=== PATIENT | male | born 1960 | race Caucasian/White ===

== ENCOUNTER 2017-08-15 16:36 | Inpatient (IN) | payer OTHER ==
[~2017-08-15] VITALS: Ht 172.7 cm; Wt 69.9 kg
[2017-08-15] MEDS ORDERED: NALOXONE HCL 1 MG/ML 2 ML SYG IVP ONE (17:15)
[2017-08-15 18:08] LABS: BASOPHILS % (AUTO) 0.1 % (0.0-2.0); EOSINOPHILS % (AUTO) 0.1 % (1.0-6.0); HEMATOCRIT 34.2 % (41-53); HEMOGLOBIN 11.8 g/dL (13.5-17.5); LYMPHOCYTES # (AUTO) 2.1 K/uL (1.0-4.8); LYMPHOCYTES % (AUTO) 7.9 % (22.0-44.0); MEAN CORPUSCULAR HGB CONC 34.6 G/dL (31.0-37.0); MEAN CORPUSCULAR VOLUME 101 fL (80-100); MONOCYTES # (AUTO) 1.2 K/uL (0.1-1.0); MONOCYTES % (AUTO) 4.4 % (2.0-9.0); NEUTROPHILS # (AUTO) 23.4 K/uL (1.8-7.7); PLATELET COUNT (AUTO) 115 K/uL (150-450); RED BLOOD CELL COUNT(AUTO) 3.38 MIL/uL (4.50-5.90); RED CELL DISTRIBUTION WIDTH 13.4 % (11.5-14.5)
[2017-08-15 18:15] LABS: NEUTROPHILS % (AUTO) 87.5 % (40.0-70.0)
[2017-08-15] MEDS ORDERED: PERMETHRIN 5% 60 GM CREAM TP ONE (18:15)
[2017-08-15] MEDS ORDERED: AZITHROMYCIN 500 MG/NS 250 ML IV ONE (18:15)
[2017-08-15] MEDS ORDERED: CefTRIAXone SODIUM 1 GM in DEXTROSE 5%-WATER 10 ML IV ONE (18:15)
[2017-08-15 18:19] LABS: ANION GAP 9 mmol/L (8-16); CALCIUM, TOTAL 7.9 mg/dL (8.8-10.5); CARBON DIOXIDE 27 mmol/L (22-29); CHLORIDE 102 mmol/L (98-107); CREATININE 0.84 mg/dL (0.60-1.30); GLOMERULAR FILTR. RATE CALC > 60 mL/min (>60); GLUCOSE,RANDOM 187 mg/dL (70-110); POTASSIUM 3.3 mmol/L (3.5-5.1); SODIUM SERUM 138 mmol/L (136-145); UREA NITROGEN, BLOOD 23 mg/dL (7-18)
[2017-08-15 18:30] LABS: PLATELET MORPHOLOGY COMMENT GIANT PLTS PRESENT; TROPONIN I < 0.02 ng/mL (0.00-0.05)
[2017-08-15] MEDS ORDERED: VANCOMYCIN HCL 1 GM/D5% WATER 200 ML IV ONE (18:30)
[2017-08-15] MEDS ORDERED: SODIUM CHLORIDE 0.9% 1,000 ML IV ONE ×3 (18:30→21:45)
[2017-08-15 18:34] LABS: APPEARANCE,URINE CLOUDY (CLEAR); BILIRUBIN,URINE NEGATIVE (NEGATIVE); GLUCOSE, URINE (UA) NEGATIVE (NEGATIVE); KETONES,URINE NEGATIVE (NEGATIVE); LEUKOCYTE ESTERASE ,URINE NEGATIVE (NEGATIVE); NITRATE,URINE NEGATIVE (NEGATIVE); OCCULT BLOOD,URINE LARGE (NEGATIVE); PH,URINE 5.5 (5.0-8.0); PROTEIN,URINE NEGATIVE (NEGATIVE)
[2017-08-15 18:35] LABS: AMPHET/METH SCREEN,URINE NEGATIVE (NEGATIVE); BARBITURATE SCREEN, URINE NEGATIVE (NEGATIVE); BENZODIAZEPINES SCREEN,URINE POSITIVE (NEGATIVE); CANNABINOID SCREEN,URINE NEGATIVE (NEGATIVE); COCAINE SCREEN,URINE NEGATIVE (NEGATIVE); METHADONE SCREEN, URINE POSITIVE (NEGATIVE); OPIATE SCREEN,URINE POSITIVE (NEGATIVE); PHENCYCLIDINE SCREEN,URINE NEGATIVE (NEGATIVE)
[2017-08-15 18:36] LABS: INR 1.1 (0.9-1.1); PROTHROMBIN TIME 11.5 SEC (9.4-11.6)
[2017-08-15 18:38] LABS: AMMONIA < 10 umol/L (11-32)
[2017-08-15 18:41] LABS: ALANINE AMINOTRANSFERASE 85 U/L (12-78); ALBUMIN 2.5 g/dL (3.4-5.0); ALKALINE PHOSPHATASE 77 U/L (46-116); ASPARTATE AMINOTRANSFERASE 118 U/L (15-37); BILIRUBIN,TOTAL 0.7 mg/dL (0.1-1.0); CREATINE KINASE MB 4.9 ng/mL (0-5); CREATINE KINASE, TOTAL 308 U/L (39-308); TOTAL PROTEIN, SERUM 7.7 g/dL (6.4-8.2)
[2017-08-15 18:43] LABS: BACTERIA,URINE Few /HPF (None Seen); SQUAMOUS EPITHELIAL CELL,UR Few /LPF (None Seen); WBC,URINE 0-2 /HPF (0-5)
[2017-08-15] MEDS ORDERED: MAGNESIUM SULFATE 2 GM, MVI, ADULT NO.1 WITH VIT K 10 ML, THIAMINE HCL 100 MG, FOLIC AC... IV ONE ×10 (19:00→21:15)
[2017-08-15 19:22] LABS: LACTIC ACID 3.8 mmol/L (0.4-2.0)
[2017-08-15] MEDS ORDERED: LORazepam 2 MG/ML VIAL IVP ONE (19:30)
[2017-08-15] MEDS ORDERED: NITROGLYCERIN 2% (1 GM=INCH) PACKET TP ONE (19:30)
[2017-08-15 19:36] LABS: ABG A-A DIFF O2 167.9 mmHg (10-20.0); ABG BASE EXCESS -7.4 mmol/L (-2.0-3.0); ABG CARBOXYHEMOGLOBIN 3.2 % (0.0-1.5); ABG HCO3 17.3 mmol/L (22.0-26.0); ABG METHEMOGLOBIN 0.7 % (0.0-1.5); ABG OXYGEN CONTENT 18.9 mL/dL (15.0-23.0); ABG OXYHEMOGLOBIN 96.1 % (94.0-100.0); ABG TOTAL HEMOGLOBIN 13.1 G/dL (12.0-18.0); PO2, ARTERIAL BG 458.8 mmHg (66.0-74.0); SOURCE, BLOOD GAS ARTERIAL; TEMPERATURE, FAHRENHEIT, BG 98.6 FAHREN (96.0-98.6)
[2017-08-15] MEDS ORDERED: PROPOFOL 1000 MG/ISO-OSM 100 ML IV ONE (19:53)
[2017-08-15 20:07] LABS: ABG PH 7.046 (7.35-7.450)
[2017-08-15 20:08] LABS: ABG PCO2 86 mmHg (35-45); O2 DEVICE,BLOOD GAS VENTILATOR (ROOM AIR); PEEP,BG 5 cm H2O; SITE, BLOOD GAS LFT RADIAL; SPONTANEOUS VT, BG 443 ml; VT, ABG 450 ml
[2017-08-15] MEDS ORDERED: 0.9% SODIUM CHLORIDE 10 ML SYRINGE IVP PRN (20:30)
[2017-08-15] MEDS ORDERED: POTASSIUM CHL 10 MEQ/WATER 50 ML IV ONE (20:30)
[2017-08-15 20:40] LABS: ABG A-A DIFF O2 197.3 mmHg (10-20.0); ABG BASE EXCESS -5.1 mmol/L (-2.0-3.0); ABG HCO3 19.3 mmol/L (22.0-26.0); ABG METHEMOGLOBIN 0.7 % (0.0-1.5); ABG OXYGEN CONTENT 15.5 mL/dL (15.0-23.0); ABG OXYHEMOGLOBIN 87.6 % (94.0-100.0); ABG TOTAL HEMOGLOBIN 12.5 G/dL (12.0-18.0); PO2, ARTERIAL BG 80.4 mmHg (66.0-74.0); SOURCE, BLOOD GAS ARTERIAL; TEMPERATURE, FAHRENHEIT, BG 98.3 FAHREN (96.0-98.6)
[2017-08-15] MEDS ORDERED: ONDANSETRON HCL 4 MG/2 ML VIAL IVP PRN (21:15)
[2017-08-15] MEDS ORDERED: MAGNESIUM OXIDE 400 MG TABLET PO PRN (21:15)
[2017-08-15] MEDS ORDERED: POTASSIUM CHLORIDE 20 MEQ ER TABLET PO PRN (21:15)
[2017-08-15 21:24] LABS: PHOSPHORUS 2.2 mg/dL (2.5-4.9)
[2017-08-15 21:52] LABS: ABG PH 7.148 (7.35-7.450)
[2017-08-15 21:53] LABS: ABG PCO2 70 mmHg (35-45); O2 DEVICE,BLOOD GAS VENTILATOR (ROOM AIR); PEEP,BG 5 cm H2O; SITE, BLOOD GAS RT RADIAL; VT, ABG 450 ml
[2017-08-15 21:54] LABS: SPONTANEOUS VT, BG 440 ml
[2017-08-15] MEDS: PIPERACILLIN SODIUM/TAZOBACTAM 4.5 GM in DEXTROSE 5%-WATER 100 ML IV SCH (22:22)
[2017-08-15 23:00] VITALS: BP 115/73
[2017-08-15] MEDS ORDERED: ALBUTEROL SULFATE 2.5 MG/0.5 ML NEB SOLUTION NEB SCH (23:00)
[2017-08-15] MEDS ORDERED: IPRATROPIUM BROMIDE 0.5 MG/2.5 ML NEB SOLUTION NEB SCH (23:00)
[2017-08-15] MEDS ORDERED: VANCOMYCIN HCL 500 MG in DEXTROSE 5%-WATER 100 ML IV ONE (23:00)
[2017-08-15] MEDS ORDERED: SODIUM CHLORIDE 0.9% 250 ML IV ONE (23:35)
[2017-08-15] MEDS: PROPOFOL 1000 MG/ISO-OSM 100 ML IV PRN (23:50)
[2017-08-15] MEDS: HEPARIN SODIUM,PORCINE 5,000 UNITS/ML VIAL SQ SCH (23:51)
[2017-08-16] VITALS: BP 97/57
[2017-08-16] MEDS: PIPERACILLIN SODIUM/TAZOBACTAM 4.5 GM in DEXTROSE 5%-WATER 100 ML IV SCH (03:45)
[2017-08-16] MEDS: ACETAMINOPHEN 325 MG TABLET PO PRN (03:45)
[2017-08-16 04:00] VITALS: BP 110/64
[2017-08-16 05:28] LABS: ALANINE AMINOTRANSFERASE 63 U/L (12-78); ALKALINE PHOSPHATASE 60 U/L (46-116); ANION GAP 4 mmol/L (8-16); ASPARTATE AMINOTRANSFERASE 90 U/L (15-37); BILIRUBIN,TOTAL 0.6 mg/dL (0.1-1.0); CALCIUM, TOTAL 6.9 mg/dL (8.8-10.5); CARBON DIOXIDE 28 mmol/L (22-29); CHLORIDE 106 mmol/L (98-107); CREATININE 0.81 mg/dL (0.60-1.30); GLOMERULAR FILTR. RATE CALC > 60 mL/min (>60); GLUCOSE,RANDOM 122 mg/dL (70-110); POTASSIUM 3.5 mmol/L (3.5-5.1); SODIUM SERUM 138 mmol/L (136-145); TOTAL PROTEIN, SERUM 6.3 g/dL (6.4-8.2); UREA NITROGEN, BLOOD 17 mg/dL (7-18)
[2017-08-16] MEDS ORDERED: RAPID SEQUENCE KIT [RSI] 1 EACH KIT ONE (06:59)
[2017-08-16] MEDS ORDERED: SUCCINYLCHOLINE CHLORIDE 20 MG/ML 10 ML VIAL ONE (07:00)
[2017-08-16 07:05] LABS: BASOPHILS % (AUTO) 0.2 % (0.0-2.0); EOSINOPHILS % (AUTO) 0.7 % (1.0-6.0); HEMATOCRIT 31.1 % (41-53); HEMOGLOBIN 10.7 g/dL (13.5-17.5); LYMPHOCYTES # (AUTO) 1.3 K/uL (1.0-4.8); LYMPHOCYTES % (AUTO) 9.9 % (22.0-44.0); MEAN CORPUSCULAR HEMOGLOBIN 35.5 pg (26.0-34.0); MEAN CORPUSCULAR HGB CONC 34.4 G/dL (31.0-37.0); MEAN CORPUSCULAR VOLUME 103 fL (80-100); MONOCYTES # (AUTO) 0.5 K/uL (0.1-1.0); MONOCYTES % (AUTO) 3.7 % (2.0-9.0); NEUTROPHILS # (AUTO) 10.9 K/uL (1.8-7.7); RED BLOOD CELL COUNT(AUTO) 3.01 MIL/uL (4.50-5.90); RED CELL DISTRIBUTION WIDTH 13.5 % (11.5-14.5)
[2017-08-16 07:22] LABS: NEUTROPHILS % (AUTO) 85.5 % (40.0-70.0)
[2017-08-16 08:00] VITALS: BP 98/54
[2017-08-16] MEDS ORDERED: VANCOMYCIN HCL 1.5 GM in DEXTROSE 5%-WATER 250 ML IV SCH (08:00)
[2017-08-16] MEDS: PROPOFOL 1000 MG/ISO-OSM 100 ML IV PRN ×2 (08:28→20:16)
[2017-08-16 09:19] LABS: PLATELET COUNT (AUTO) 91 K/uL (150-450)
[2017-08-16 09:22] LABS: PLATELET MORPHOLOGY COMMENT GIANT PLTS PRESENT
[2017-08-16] MEDS: VANCOMYCIN HCL 1 GM/D5% WATER 200 ML IV SCH ×2 (09:44→20:16)
[2017-08-16] MEDS: DOCUSATE SODIUM 100 MG CAPSULE PO SCH ×2 (09:45→20:16)
[2017-08-16] MEDS: PANTOPRAZOLE SODIUM 40 MG/VIAL IVP SCH (09:46)
[2017-08-16] MEDS: HEPARIN SODIUM,PORCINE 5,000 UNITS/ML VIAL SQ SCH ×3 (09:46→23:06)
[2017-08-16] MEDS ORDERED: SODIUM CHLORIDE 0.9% 250 ML IV ONE (11:10)
[2017-08-16] MEDS: PIPERACILLIN/TAZO 3.375 GM/D5W 50 ML IV SCH ×3 (11:27→22:14)
[2017-08-16 12:00] VITALS: BP 124/86
[2017-08-16] MEDS: ChlordiazePOXIDE HCL 25 MG CAPSULE PO SCH ×3 (12:35→23:06)
[2017-08-16] MEDS: MAGNESIUM SULFATE 2 GM in DEXTROSE 5%-WATER 50 ML IV PRN (14:16)
[2017-08-16 16:00] VITALS: BP 126/76
[2017-08-16] MEDS ORDERED: ETOMIDATE 2 MG/ML 10 ML VIAL IVP ONE (17:53)
[2017-08-16 20:00] VITALS: BP 109/65
[2017-08-16] MEDS: POTASSIUM CHL 10 MEQ/WATER 50 ML IV PRN ×2 (22:15→23:07)
[2017-08-17] VITALS: BP 117/74
[2017-08-17] MEDS: POTASSIUM CHL 10 MEQ/WATER 50 ML IV PRN (00:48)
[2017-08-17] MEDS: PROPOFOL 1000 MG/ISO-OSM 100 ML IV PRN ×4 (00:48→23:06)
[2017-08-17] MEDS: PIPERACILLIN/TAZO 3.375 GM/D5W 50 ML IV SCH ×4 (03:46→21:13)
[2017-08-17] MEDS ORDERED: SODIUM CHLORIDE 0.9% 250 ML IV ONE (03:48)
[2017-08-17 04:00] VITALS: BP 106/65
[2017-08-17 05:11] LABS: ALANINE AMINOTRANSFERASE 61 U/L (12-78); ALBUMIN 1.9 g/dL (3.4-5.0); ALKALINE PHOSPHATASE 62 U/L (46-116); ANION GAP 0 mmol/L (8-16); ASPARTATE AMINOTRANSFERASE 91 U/L (15-37); BILIRUBIN,TOTAL 0.8 mg/dL (0.1-1.0); CALCIUM, TOTAL 7.5 mg/dL (8.8-10.5); CARBON DIOXIDE 29 mmol/L (22-29); CHLORIDE 103 mmol/L (98-107); CREATININE 0.71 mg/dL (0.60-1.30); GLOMERULAR FILTR. RATE CALC > 60 mL/min (>60); GLUCOSE,RANDOM 191 mg/dL (70-110); POTASSIUM 4.5 mmol/L (3.5-5.1); SODIUM SERUM 132 mmol/L (136-145); THYROID STIMULATING HORMONE 0.52 uIU/mL (0.36-3.74); TOTAL PROTEIN, SERUM 6.5 g/dL (6.4-8.2); UREA NITROGEN, BLOOD 16 mg/dL (7-18); VANCOMYCIN,RANDOM 14.1 mcg/mL (25.0-50.0)
[2017-08-17 05:53] LABS: BASOPHILS % (AUTO) 0.5 % (0.0-2.0); EOSINOPHILS % (AUTO) 0.9 % (1.0-6.0); LYMPHOCYTES # (AUTO) 0.8 K/uL (1.0-4.8); LYMPHOCYTES % (AUTO) 10.5 % (22.0-44.0); MEAN CORPUSCULAR HEMOGLOBIN 37.8 pg (26.0-34.0); MEAN CORPUSCULAR HGB CONC 35.5 G/dL (31.0-37.0); MEAN CORPUSCULAR VOLUME 106 fL (80-100); MONOCYTES # (AUTO) 0.4 K/uL (0.1-1.0); MONOCYTES % (AUTO) 4.7 % (2.0-9.0); NEUTROPHILS # (AUTO) 6.7 K/uL (1.8-7.7); NEUTROPHILS % (AUTO) 83.4 % (40.0-70.0); PLATELET COUNT (AUTO) 71 K/uL (150-450); RED BLOOD CELL COUNT(AUTO) 2.91 MIL/uL (4.50-5.90); RED CELL DISTRIBUTION WIDTH 13.8 % (11.5-14.5)
[2017-08-17] MEDS: ChlordiazePOXIDE HCL 25 MG CAPSULE PO SCH ×4 (06:06→23:10)
[2017-08-17 07:58] LABS: PLATELET MORPHOLOGY COMMENT LARGE PLTS PRESENT
[2017-08-17 08:00] VITALS: BP 150/97
[2017-08-17] MEDS: PANTOPRAZOLE SODIUM 40 MG/VIAL IVP SCH (08:16)
[2017-08-17] MEDS: HEPARIN SODIUM,PORCINE 5,000 UNITS/ML VIAL SQ SCH ×3 (08:16→23:11)
[2017-08-17] MEDS: VANCOMYCIN HCL 1 GM/D5% WATER 200 ML IV SCH ×3 (08:16→23:10)
[2017-08-17 08:17] LABS: B-TYPE NATRIURETIC PEPTIDE 98 pg/mL (0-100)
[2017-08-17] MEDS: DOCUSATE SODIUM 100 MG CAPSULE PO SCH ×2 (08:17→21:13)
[2017-08-17 10:17] LABS: ABG A-A DIFF O2 146.6 mmHg (10-20.0); ABG BASE EXCESS 0.8 mmol/L (-2.0-3.0); ABG CARBOXYHEMOGLOBIN 0.4 % (0.0-1.5); ABG METHEMOGLOBIN 0.3 % (0.0-1.5); ABG OXYGEN CONTENT 15.5 mL/dL (15.0-23.0); ABG OXYGEN SATURATION 96.9 % (95.0-98.0); ABG OXYHEMOGLOBIN 96.2 % (94.0-100.0); ABG PCO2 45 mmHg (35-45); ABG PH 7.381 (7.35-7.450); ABG TOTAL HEMOGLOBIN 11.4 G/dL (12.0-18.0); O2 DEVICE,BLOOD GAS VENTILATOR (ROOM AIR); PEEP,BG 5 cm H2O; PO2, ARTERIAL BG 87.2 mmHg (84.0-92.0); SITE, BLOOD GAS RT RADIAL; SOURCE, BLOOD GAS ARTERIAL; TEMPERATURE, FAHRENHEIT, BG 98.6 FAHREN (96.0-98.6); VT, ABG 450 ml
[2017-08-17] MEDS ORDERED: MAGNESIUM SULFATE 2 GM, MVI, ADULT NO.1 WITH VIT K 10 ML, THIAMINE HCL 100 MG, FOLIC AC... IV ONE ×5 (11:00)
[2017-08-17 12:00] VITALS: BP 112/65
[2017-08-17] MEDS: LORazepam 2 MG/ML VIAL IVP PRN (13:33)
[2017-08-17 16:00] VITALS: BP 125/79
[2017-08-17 20:00] VITALS: BP 135/71
[2017-08-17] MEDS ORDERED: INSULIN GLARGINE,HUM.REC.ANLOG 100 UNITS/ML SQ ONE (22:30)
[2017-08-17] MEDS ORDERED: INSULIN LISPRO 100 UNITS/ML SQ PRN (22:30)
[2017-08-17] MEDS ORDERED: DEXTROSE 50%-WATER 25 GM/50 ML SYRINGE IVP PRN (22:30)
[2017-08-17] MEDS ORDERED: INSULIN REGULAR, HUMAN 100 UNITS/ML SQ ONE (22:30)
[2017-08-18] VITALS: BP 133/83
[2017-08-18] MEDS: PROPOFOL 1000 MG/ISO-OSM 100 ML IV PRN ×4 (02:19→17:35)
[2017-08-18] MEDS: LORazepam 2 MG/ML VIAL IVP PRN ×4 (02:23→22:04)
[2017-08-18] MEDS: PIPERACILLIN/TAZO 3.375 GM/D5W 50 ML IV SCH ×4 (03:12→21:54)
[2017-08-18] MEDS ORDERED: SODIUM CHLORIDE 0.9% 100 ML ONE (03:13)
[2017-08-18 04:00] VITALS: BP 138/69
[2017-08-18] MEDS: ChlordiazePOXIDE HCL 25 MG CAPSULE PO SCH ×4 (05:11→23:39)
[2017-08-18 05:19] LABS: ANION GAP 1 mmol/L (8-16); CALCIUM, TOTAL 7.7 mg/dL (8.8-10.5); CARBON DIOXIDE 30 mmol/L (22-29); CHLORIDE 106 mmol/L (98-107); CREATININE 0.68 mg/dL (0.60-1.30); GLOMERULAR FILTR. RATE CALC > 60 mL/min (>60); GLUCOSE,RANDOM 153 mg/dL (70-110); POTASSIUM 3.5 mmol/L (3.5-5.1); SODIUM SERUM 137 mmol/L (136-145); UREA NITROGEN, BLOOD 10 mg/dL (7-18)
[2017-08-18 05:24] LABS: BASOPHILS % (AUTO) 0.8 % (0.0-2.0); EOSINOPHILS % (AUTO) 6.4 % (1.0-6.0); HEMATOCRIT 32.5 % (41-53); HEMOGLOBIN 11.6 g/dL (13.5-17.5); LYMPHOCYTES # (AUTO) 0.6 K/uL (1.0-4.8); LYMPHOCYTES % (AUTO) 14.7 % (22.0-44.0); MEAN CORPUSCULAR HGB CONC 35.8 G/dL (31.0-37.0); MEAN CORPUSCULAR VOLUME 103 fL (80-100); MONOCYTES # (AUTO) 0.3 K/uL (0.1-1.0); NEUTROPHILS % (AUTO) 70.1 % (40.0-70.0); PLATELET COUNT (AUTO) 65 K/uL (150-450); RED BLOOD CELL COUNT(AUTO) 3.14 MIL/uL (4.50-5.90); RED CELL DISTRIBUTION WIDTH 13.9 % (11.5-14.5)
[2017-08-18] MEDS: POTASSIUM CHL 10 MEQ/WATER 50 ML IV PRN ×3 (06:16→09:26)
[2017-08-18] MEDS: MAGNESIUM SULFATE 2 GM in DEXTROSE 5%-WATER 50 ML IV PRN (06:37)
[2017-08-18 08:00] VITALS: BP 133/78
[2017-08-18 08:23] LABS: ABG A-A DIFF O2 139.7 mmHg (10-20.0); ABG BASE EXCESS 1.4 mmol/L (-2.0-3.0); ABG CARBOXYHEMOGLOBIN 0.8 % (0.0-1.5); ABG HCO3 25.5 mmol/L (22.0-26.0); ABG METHEMOGLOBIN 0.1 % (0.0-1.5); ABG OXYGEN SATURATION 97.7 % (95.0-98.0); ABG OXYHEMOGLOBIN 96.8 % (94.0-100.0); ABG PCO2 43 mmHg (35-45); ABG PH 7.401 (7.35-7.450); ABG TOTAL HEMOGLOBIN 13.9 G/dL (12.0-18.0); PO2, ARTERIAL BG 96.2 mmHg (84.0-92.0); SOURCE, BLOOD GAS ARTERIAL
[2017-08-18] MEDS: VANCOMYCIN HCL 1 GM/D5% WATER 200 ML IV SCH ×3 (08:23→23:39)
[2017-08-18] MEDS: MAGNESIUM HYDROXIDE SUSPENSION 30 ML UDCUP PO PRN (08:23)
[2017-08-18 08:24] LABS: O2 DEVICE,BLOOD GAS VENTILATOR (ROOM AIR); SITE, BLOOD GAS RT RADIAL
[2017-08-18] MEDS: THIAMINE HCL 100 MG TABLET PO SCH (08:24)
[2017-08-18] MEDS: HEPARIN SODIUM,PORCINE 5,000 UNITS/ML VIAL SQ SCH ×3 (08:24→23:39)
[2017-08-18] MEDS: PANTOPRAZOLE SODIUM 40 MG/VIAL IVP SCH (08:24)
[2017-08-18] MEDS: DOCUSATE SODIUM 100 MG CAPSULE PO SCH ×2 (08:24→21:34)
[2017-08-18] MEDS: MULTIVITAMINS WITH MINERALS, THERAPEUTIC 15 ML UDCUP GT SCH (08:24)
[2017-08-18 08:25] LABS: PEEP,BG 5 cm H2O; VT, ABG 450 ml
[2017-08-18] MEDS ORDERED: INSULIN GLARGINE,HUM.REC.ANLOG 100 UNITS/ML SQ SCH (09:00)
[2017-08-18] MEDS: METOPROLOL TARTRATE 25 MG TABLET PO SCH ×2 (11:39→21:34)
[2017-08-18 12:00] VITALS: BP 177/106
[2017-08-18] MEDS: HydrALAZINE HCL 10 MG TABLET PO SCH ×3 (12:00→21:33)
[2017-08-18 16:00] VITALS: BP 132/74
[2017-08-18 20:00] VITALS: BP 149/92
[2017-08-18] MEDS ORDERED: SODIUM CHLORIDE 0.9% 250 ML IV ONE (22:03)
[2017-08-19] VITALS: BP 154/90
[2017-08-19] MEDS: PROPOFOL 1000 MG/ISO-OSM 100 ML IV PRN ×5 (00:08→21:11)
[2017-08-19 04:00] VITALS: BP 145/79
[2017-08-19] MEDS: PIPERACILLIN/TAZO 3.375 GM/D5W 50 ML IV SCH ×4 (04:37→22:06)
[2017-08-19 05:28] LABS: BASOPHILS % (AUTO) 0.7 % (0.0-2.0); EOSINOPHILS % (AUTO) 7.3 % (1.0-6.0); HEMOGLOBIN 12.9 g/dL (13.5-17.5); LYMPHOCYTES # (AUTO) 0.8 K/uL (1.0-4.8); MEAN CORPUSCULAR HEMOGLOBIN 35.5 pg (26.0-34.0); MEAN CORPUSCULAR HGB CONC 34.8 G/dL (31.0-37.0); MEAN CORPUSCULAR VOLUME 102 fL (80-100); MONOCYTES # (AUTO) 0.5 K/uL (0.1-1.0); MONOCYTES % (AUTO) 10.4 % (2.0-9.0); NEUTROPHILS # (AUTO) 2.9 K/uL (1.8-7.7); NEUTROPHILS % (AUTO) 64.6 % (40.0-70.0); PLATELET COUNT (AUTO) 77 K/uL (150-450); RED BLOOD CELL COUNT(AUTO) 3.63 MIL/uL (4.50-5.90); RED CELL DISTRIBUTION WIDTH 13.6 % (11.5-14.5)
[2017-08-19 05:37] LABS: ANION GAP 0 mmol/L (8-16); CALCIUM, TOTAL 7.9 mg/dL (8.8-10.5); CARBON DIOXIDE 32 mmol/L (22-29); CHLORIDE 107 mmol/L (98-107); CREATININE 0.69 mg/dL (0.60-1.30); GLOMERULAR FILTR. RATE CALC > 60 mL/min (>60); GLUCOSE,RANDOM 197 mg/dL (70-110); POTASSIUM 4.3 mmol/L (3.5-5.1); SODIUM SERUM 139 mmol/L (136-145); UREA NITROGEN, BLOOD 9 mg/dL (7-18)
[2017-08-19] MEDS: ChlordiazePOXIDE HCL 25 MG CAPSULE PO SCH ×4 (06:26→23:35)
[2017-08-19] MEDS: MAGNESIUM SULFATE 4 GM/WATER 100 ML IV PRN (06:38)
[2017-08-19 08:00] VITALS: BP 156/100
[2017-08-19 09:21] LABS: ABG BASE EXCESS 3.2 mmol/L (-2.0-3.0); ABG HCO3 26.9 mmol/L (22.0-26.0); ABG METHEMOGLOBIN 0.2 % (0.0-1.5); ABG OXYGEN CONTENT 17.7 mL/dL (15.0-23.0); ABG OXYGEN SATURATION 94.2 % (95.0-98.0); ABG OXYHEMOGLOBIN 93.1 % (94.0-100.0); ABG PCO2 43 mmHg (35-45); ABG PH 7.424 (7.35-7.450); ABG TOTAL HEMOGLOBIN 13.5 G/dL (12.0-18.0); PO2, ARTERIAL BG 68.7 mmHg (84.0-92.0); SITE, BLOOD GAS RT RADIAL; SOURCE, BLOOD GAS ARTERIAL; TEMPERATURE, FAHRENHEIT, BG 98.4 FAHREN (96.0-98.6)
[2017-08-19 09:22] LABS: O2 DEVICE,BLOOD GAS VENTILATOR (ROOM AIR); VT, ABG 450 ml
[2017-08-19 09:23] LABS: PEEP,BG 5 cm H2O
[2017-08-19] MEDS: VANCOMYCIN HCL 1 GM/D5% WATER 200 ML IV SCH ×3 (09:32→23:35)
[2017-08-19] MEDS: METOPROLOL TARTRATE 25 MG TABLET PO SCH ×2 (09:33→22:06)
[2017-08-19] MEDS: THIAMINE HCL 100 MG TABLET PO SCH (09:33)
[2017-08-19] MEDS: DOCUSATE SODIUM 100 MG CAPSULE PO SCH ×2 (09:33→22:06)
[2017-08-19] MEDS: PANTOPRAZOLE SODIUM 40 MG/VIAL IVP SCH (09:33)
[2017-08-19] MEDS: HEPARIN SODIUM,PORCINE 5,000 UNITS/ML VIAL SQ SCH ×3 (09:34→23:35)
[2017-08-19] MEDS: HydrALAZINE HCL 10 MG TABLET PO SCH ×4 (09:36→22:07)
[2017-08-19] MEDS: MULTIVITAMINS WITH MINERALS, THERAPEUTIC 15 ML UDCUP GT SCH (09:37)
[2017-08-19 12:00] VITALS: BP 152/77
[2017-08-19] MEDS ORDERED: BISACODYL 10 MG RECTAL RECTAL SUPPOSITORY PR PRN (15:30)
[2017-08-19] MEDS ORDERED: SODIUM CHLORIDE 0.9% 250 ML IV ONE ×2 (17:19→19:42)
[2017-08-19] MEDS: HydrALAZINE HCL 20 MG/ML VIAL IVP PRN ×2 (17:38→23:19)
[2017-08-19] MEDS: MAGNESIUM HYDROXIDE SUSPENSION 30 ML UDCUP PO PRN (19:16)
[2017-08-19 20:00] VITALS: BP 196/106
[2017-08-20] VITALS: BP 149/78
[2017-08-20] MEDS: LORazepam 2 MG/ML VIAL IVP PRN ×2 (00:50→14:54)
[2017-08-20 04:00] VITALS: BP 151/75
[2017-08-20 04:57] LABS: BASOPHILS % (AUTO) 0.5 % (0.0-2.0); EOSINOPHILS % (AUTO) 3.6 % (1.0-6.0); HEMATOCRIT 36.6 % (41-53); LYMPHOCYTES # (AUTO) 0.7 K/uL (1.0-4.8); LYMPHOCYTES % (AUTO) 15.4 % (22.0-44.0); MEAN CORPUSCULAR HEMOGLOBIN 36.3 pg (26.0-34.0); MEAN CORPUSCULAR HGB CONC 35.4 G/dL (31.0-37.0); MEAN CORPUSCULAR VOLUME 103 fL (80-100); MONOCYTES # (AUTO) 0.6 K/uL (0.1-1.0); MONOCYTES % (AUTO) 12.5 % (2.0-9.0); NEUTROPHILS # (AUTO) 3.2 K/uL (1.8-7.7); PLATELET COUNT (AUTO) 83 K/uL (150-450); RED BLOOD CELL COUNT(AUTO) 3.57 MIL/uL (4.50-5.90); RED CELL DISTRIBUTION WIDTH 13.6 % (11.5-14.5)
[2017-08-20] MEDS: PIPERACILLIN/TAZO 3.375 GM/D5W 50 ML IV SCH ×4 (05:00→22:06)
[2017-08-20 05:16] LABS: ANION GAP 2 mmol/L (8-16); CALCIUM, TOTAL 8.3 mg/dL (8.8-10.5); CARBON DIOXIDE 34 mmol/L (22-29); CHLORIDE 106 mmol/L (98-107); CREATININE 0.61 mg/dL (0.60-1.30); GLOMERULAR FILTR. RATE CALC > 60 mL/min (>60); GLUCOSE,RANDOM 232 mg/dL (70-110); POTASSIUM 3.8 mmol/L (3.5-5.1); SODIUM SERUM 142 mmol/L (136-145); UREA NITROGEN, BLOOD 10 mg/dL (7-18); VANCOMYCIN,RANDOM 38.9 mcg/mL (25.0-50.0)
[2017-08-20] MEDS: ChlordiazePOXIDE HCL 25 MG CAPSULE PO SCH ×4 (05:39→23:44)
[2017-08-20] MEDS: PROPOFOL 1000 MG/ISO-OSM 100 ML IV PRN ×4 (05:47→20:08)
[2017-08-20 08:00] VITALS: BP 117/65
[2017-08-20] MEDS: METOPROLOL TARTRATE 25 MG TABLET PO SCH ×2 (08:28→20:08)
[2017-08-20] MEDS: THIAMINE HCL 100 MG TABLET PO SCH (08:28)
[2017-08-20] MEDS: HEPARIN SODIUM,PORCINE 5,000 UNITS/ML VIAL SQ SCH ×3 (08:28→23:44)
[2017-08-20] MEDS: DOCUSATE SODIUM 100 MG CAPSULE PO SCH ×2 (08:28→20:08)
[2017-08-20] MEDS: HydrALAZINE HCL 10 MG TABLET PO SCH ×4 (08:28→20:08)
[2017-08-20] MEDS: MULTIVITAMINS WITH MINERALS, THERAPEUTIC 15 ML UDCUP GT SCH (08:29)
[2017-08-20] MEDS: PANTOPRAZOLE SODIUM 40 MG/VIAL IVP SCH (08:29)
[2017-08-20] MEDS: MAGNESIUM SULFATE 4 GM/WATER 100 ML IV PRN (09:44)
[2017-08-20 09:51] LABS: ABG BASE EXCESS 5.3 mmol/L (-2.0-3.0); ABG HCO3 27.8 mmol/L (22.0-26.0); ABG METHEMOGLOBIN 0.1 % (0.0-1.5); ABG OXYGEN SATURATION 92.3 % (95.0-98.0); ABG OXYHEMOGLOBIN 91.3 % (94.0-100.0); ABG PCO2 56 mmHg (35-45); ABG TOTAL HEMOGLOBIN 13.2 G/dL (12.0-18.0); PO2, ARTERIAL BG 66.7 mmHg (84.0-92.0); SITE, BLOOD GAS RT RADIAL; SOURCE, BLOOD GAS ARTERIAL; TEMPERATURE, FAHRENHEIT, BG 97.8 FAHREN (96.0-98.6)
[2017-08-20 09:52] LABS: O2 DEVICE,BLOOD GAS VENTILATOR (ROOM AIR); PEEP,BG 5 cm H2O; VT, ABG 450 ml
[2017-08-20] MEDS: VANCOMYCIN HCL 1 GM/D5% WATER 200 ML IV SCH ×3 (11:56→23:44)
[2017-08-20 12:00] VITALS: BP 118/63
[2017-08-20] MEDS ORDERED: SODIUM CHLORIDE 0.9% 100 ML ONE (12:25)
[2017-08-20 16:00] VITALS: BP 132/66
[2017-08-20] MEDS ORDERED: SODIUM CHLORIDE 0.9% 250 ML IV ONE ×2 (19:54→22:01)
[2017-08-20 20:00] VITALS: BP 179/89
[2017-08-20] MEDS: HydrALAZINE HCL 20 MG/ML VIAL IVP PRN (23:45)
[2017-08-21] VITALS: BP 157/75
[2017-08-21] MEDS: PROPOFOL 1000 MG/ISO-OSM 100 ML IV PRN ×5 (02:58→21:31)
[2017-08-21] MEDS: PIPERACILLIN/TAZO 3.375 GM/D5W 50 ML IV SCH ×4 (02:58→21:31)
[2017-08-21 04:00] VITALS: BP 157/82
[2017-08-21] MEDS: ChlordiazePOXIDE HCL 25 MG CAPSULE PO SCH (05:26)
[2017-08-21 05:33] LABS: ANION GAP 1 mmol/L (8-16); CALCIUM, TOTAL 8.3 mg/dL (8.8-10.5); CARBON DIOXIDE 36 mmol/L (22-29); CHLORIDE 104 mmol/L (98-107); CREATININE 1.01 mg/dL (0.60-1.30); GLOMERULAR FILTR. RATE CALC > 60 mL/min (>60); GLUCOSE,RANDOM 221 mg/dL (70-110); POTASSIUM 4.6 mmol/L (3.5-5.1); SODIUM SERUM 141 mmol/L (136-145); UREA NITROGEN, BLOOD 19 mg/dL (7-18)
[2017-08-21] MEDS: VANCOMYCIN HCL 1 GM/D5% WATER 200 ML IV SCH ×2 (07:03→15:38)
[2017-08-21 07:34] LABS: BASOPHILS % (AUTO) 0.4 % (0.0-2.0); HEMATOCRIT 36.6 % (41-53); HEMOGLOBIN 12.5 g/dL (13.5-17.5); LYMPHOCYTES # (AUTO) 0.8 K/uL (1.0-4.8); LYMPHOCYTES % (AUTO) 11.8 % (22.0-44.0); MEAN CORPUSCULAR HEMOGLOBIN 35.5 pg (26.0-34.0); MEAN CORPUSCULAR HGB CONC 34.1 G/dL (31.0-37.0); MEAN CORPUSCULAR VOLUME 104 fL (80-100); MONOCYTES # (AUTO) 0.8 K/uL (0.1-1.0); NEUTROPHILS # (AUTO) 4.7 K/uL (1.8-7.7); NEUTROPHILS % (AUTO) 72.8 % (40.0-70.0); PLATELET COUNT (AUTO) 93 K/uL (150-450); RED BLOOD CELL COUNT(AUTO) 3.52 MIL/uL (4.50-5.90); RED CELL DISTRIBUTION WIDTH 13.9 % (11.5-14.5)
[2017-08-21 07:39] LABS: PHOSPHORUS 5.5 mg/dL (2.5-4.9)
[2017-08-21] MEDS: PANTOPRAZOLE SODIUM 40 MG/VIAL IVP SCH (07:43)
[2017-08-21] MEDS: HEPARIN SODIUM,PORCINE 5,000 UNITS/ML VIAL SQ SCH ×2 (07:43→15:38)
[2017-08-21] MEDS: HydrALAZINE HCL 10 MG TABLET PO SCH ×4 (07:44→20:02)
[2017-08-21] MEDS: MULTIVITAMINS WITH MINERALS, THERAPEUTIC 15 ML UDCUP GT SCH (07:44)
[2017-08-21] MEDS: METOPROLOL TARTRATE 25 MG TABLET PO SCH ×2 (07:44→20:02)
[2017-08-21] MEDS: THIAMINE HCL 100 MG TABLET PO SCH (07:44)
[2017-08-21] MEDS: DOCUSATE SODIUM 100 MG CAPSULE PO SCH ×2 (07:44→20:02)
[2017-08-21 08:00] VITALS: BP 171/82
[2017-08-21 09:40] LABS: ABG A-A DIFF O2 141.2 mmHg (10-20.0); ABG BASE EXCESS 8.6 mmol/L (-2.0-3.0); ABG CARBOXYHEMOGLOBIN 0.8 % (0.0-1.5); ABG HCO3 30.3 mmol/L (22.0-26.0); ABG METHEMOGLOBIN 0.1 % (0.0-1.5); ABG OXYGEN CONTENT 16.8 mL/dL (15.0-23.0); ABG OXYHEMOGLOBIN 93.2 % (94.0-100.0); ABG PCO2 65 mmHg (35-45); ABG TOTAL HEMOGLOBIN 12.8 G/dL (12.0-18.0); PO2, ARTERIAL BG 69.8 mmHg (84.0-92.0); SOURCE, BLOOD GAS ARTERIAL; TEMPERATURE, FAHRENHEIT, BG 97.4 FAHREN (96.0-98.6)
[2017-08-21 09:42] LABS: O2 DEVICE,BLOOD GAS VENTILATOR (ROOM AIR); SITE, BLOOD GAS RT RADIAL
[2017-08-21 09:43] LABS: PEEP,BG 5 cm H2O; VT, ABG 450 ml
[2017-08-21] MEDS ORDERED: ALBUTEROL SULFATE 2.5 MG/0.5 ML NEB SOLUTION NEB ONE (10:21)
[2017-08-21] MEDS ORDERED: IPRATROPIUM BROMIDE 0.5 MG/2.5 ML NEB SOLUTION NEB ONE (10:21)
[2017-08-21] MEDS: LORazepam 2 MG/ML VIAL IVP PRN (10:51)
[2017-08-21] MEDS ORDERED: DEXTROSE 50%-WATER 25 GM/50 ML SYRINGE IVP PRN (11:30)
[2017-08-21] MEDS ORDERED: INSULIN LISPRO 100 UNITS/ML SQ PRN (11:30)
[2017-08-21] MEDS: ChlordiazePOXIDE HCL 25 MG CAPSULE NG SCH ×2 (11:50→17:38)
[2017-08-21 12:00] VITALS: BP 185/85
[2017-08-21] MEDS: IPRATROPIUM BROMIDE 0.5 MG/2.5 ML NEB SOLUTION NEB SCH ×3 (15:06→23:18)
[2017-08-21] MEDS: ALBUTEROL SULFATE 2.5 MG/0.5 ML NEB SOLUTION NEB SCH ×3 (15:07→23:18)
[2017-08-21 16:00] VITALS: BP 146/80
[2017-08-21] MEDS: INSULIN REGULAR, HUMAN 100 UNITS/ML SQ PRN (17:42)
[2017-08-21] MEDS ORDERED: SODIUM CHLORIDE 0.9% 250 ML IV ONE (19:55)
[2017-08-21 20:00] VITALS: BP 159/79
[2017-08-21 20:13] LABS: GLUCOSE,POINT OF CARE 180 MG/DL (70-110)
[2017-08-22] VITALS (8 sets, daily range): BP systolic 132–173; BP diastolic 68–92
[2017-08-22] MEDS: LORazepam 2 MG/ML VIAL IVP PRN ×2 (00:37→15:08)
[2017-08-22] MEDS: VANCOMYCIN HCL 1 GM/D5% WATER 200 ML IV SCH ×4 (00:38→23:06)
[2017-08-22] MEDS: HEPARIN SODIUM,PORCINE 5,000 UNITS/ML VIAL SQ SCH ×4 (00:38→23:05)
[2017-08-22] MEDS: HydrALAZINE HCL 20 MG/ML VIAL IVP PRN ×4 (00:38→21:47)
[2017-08-22] MEDS: INSULIN REGULAR, HUMAN 100 UNITS/ML SQ PRN ×4 (00:43→17:13)
[2017-08-22] MEDS: ChlordiazePOXIDE HCL 25 MG CAPSULE NG SCH ×5 (00:56→23:05)
[2017-08-22] MEDS: PROPOFOL 1000 MG/ISO-OSM 100 ML IV PRN ×4 (01:31→16:45)
[2017-08-22] MEDS: IPRATROPIUM BROMIDE 0.5 MG/2.5 ML NEB SOLUTION NEB SCH ×6 (02:41→22:54)
[2017-08-22] MEDS: ALBUTEROL SULFATE 2.5 MG/0.5 ML NEB SOLUTION NEB SCH ×6 (02:41→22:54)
[2017-08-22] MEDS ORDERED: SODIUM CHLORIDE 0.9% 250 ML IV ONE ×2 (03:28→09:49)
[2017-08-22] MEDS: PIPERACILLIN/TAZO 3.375 GM/D5W 50 ML IV SCH ×4 (03:31→21:47)
[2017-08-22 05:46] LABS: ALBUMIN 1.9 g/dL (3.4-5.0); ANION GAP 1 mmol/L (8-16); CALCIUM, TOTAL 8.4 mg/dL (8.8-10.5); CARBON DIOXIDE 35 mmol/L (22-29); CHLORIDE 103 mmol/L (98-107); CREATININE 0.94 mg/dL (0.60-1.30); GLOMERULAR FILTR. RATE CALC > 60 mL/min (>60); GLUCOSE,RANDOM 170 mg/dL (70-110); POTASSIUM 4.9 mmol/L (3.5-5.1); SODIUM SERUM 139 mmol/L (136-145); UREA NITROGEN, BLOOD 21 mg/dL (7-18); VANCOMYCIN,RANDOM 36.4 mcg/mL (25.0-50.0)
[2017-08-22 06:33] LABS: HEMATOCRIT 34.6 % (41-53); MEAN CORPUSCULAR HEMOGLOBIN 35.6 pg (26.0-34.0); MEAN CORPUSCULAR HGB CONC 34.8 G/dL (31.0-37.0); MEAN CORPUSCULAR VOLUME 102 fL (80-100); PLATELET COUNT (AUTO) 99 K/uL (150-450); RED BLOOD CELL COUNT(AUTO) 3.37 MIL/uL (4.50-5.90); RED CELL DISTRIBUTION WIDTH 14.1 % (11.5-14.5)
[2017-08-22 06:40] LABS: PHOSPHORUS 4.4 mg/dL (2.5-4.9)
[2017-08-22 06:49] LABS: GLUCOSE,POINT OF CARE 169 MG/DL (70-110)
[2017-08-22 06:49] LABS: GLUCOSE,POINT OF CARE 169 MG/DL (70-110)
[2017-08-22] MEDS: THIAMINE HCL 100 MG TABLET PO SCH (08:25)
[2017-08-22] MEDS: METOPROLOL TARTRATE 25 MG TABLET PO SCH ×2 (08:26→20:27)
[2017-08-22] MEDS: HydrALAZINE HCL 10 MG TABLET PO SCH ×4 (08:26→20:29)
[2017-08-22] MEDS: PANTOPRAZOLE SODIUM 40 MG/VIAL IVP SCH (08:26)
[2017-08-22] MEDS: MULTIVITAMINS WITH MINERALS, THERAPEUTIC 15 ML UDCUP GT SCH (08:27)
[2017-08-22] MEDS: DOCUSATE SODIUM 100 MG CAPSULE PO SCH ×2 (08:27→20:27)
[2017-08-22 08:35] LABS: BAND NEUTROPHILS % (MANUAL) 5 % (0-5); BASOPHILS % (MANUAL) 2 % (0-2); EOSINOPHILS % (MANUAL) 2 % (1-6); LYMPHOCYTES % (MANUAL) 14 % (22-44); MONOCYTES % (MANUAL) 4 % (2-9); SEGMENTED NEUTROPHILS % 73 % (40-70)
[2017-08-22 08:36] LABS: WBC MORPHOLOGY TOXIC GRANULATION
[2017-08-22 08:52] LABS: ABG A-A DIFF O2 145.1 mmHg (10-20.0); ABG BASE EXCESS 9.7 mmol/L (-2.0-3.0); ABG CARBOXYHEMOGLOBIN 0.6 % (0.0-1.5); ABG HCO3 31.3 mmol/L (22.0-26.0); ABG METHEMOGLOBIN 0.2 % (0.0-1.5); ABG OXYGEN CONTENT 16.8 mL/dL (15.0-23.0); ABG OXYGEN SATURATION 92.3 % (95.0-98.0); ABG OXYHEMOGLOBIN 91.6 % (94.0-100.0); ABG PCO2 64 mmHg (35-45); ABG PH 7.359 (7.35-7.450); PO2, ARTERIAL BG 66.6 mmHg (84.0-92.0); SOURCE, BLOOD GAS ARTERIAL; TEMPERATURE, FAHRENHEIT, BG 98.6 FAHREN (96.0-98.6)
[2017-08-22 08:54] LABS: O2 DEVICE,BLOOD GAS VENTILATOR (ROOM AIR); SITE, BLOOD GAS RT RADIAL; VT, ABG 450 ml
[2017-08-22 08:55] LABS: PEEP,BG 5 cm H2O
[2017-08-22 12:48] LABS: GLUCOSE,POINT OF CARE 162 MG/DL (70-110)
[2017-08-22] MEDS: MORPHINE SULFATE 4 MG/ML SYRINGE IVP PRN ×2 (13:17→23:05)
[2017-08-22 18:48] LABS: GLUCOSE,POINT OF CARE 161 MG/DL (70-110)
[2017-08-23] VITALS (7 sets, daily range): BP systolic 132–181; BP diastolic 70–90
[2017-08-23] MEDS: INSULIN REGULAR, HUMAN 100 UNITS/ML SQ PRN ×5 (01:15→23:55)
[2017-08-23] MEDS: IPRATROPIUM BROMIDE 0.5 MG/2.5 ML NEB SOLUTION NEB SCH ×6 (03:26→22:31)
[2017-08-23] MEDS: ALBUTEROL SULFATE 2.5 MG/0.5 ML NEB SOLUTION NEB SCH ×6 (03:26→22:31)
[2017-08-23] MEDS: LORazepam 2 MG/ML VIAL IVP PRN ×3 (03:49→14:12)
[2017-08-23] MEDS: PIPERACILLIN/TAZO 3.375 GM/D5W 50 ML IV SCH ×4 (03:49→23:03)
[2017-08-23] MEDS: ChlordiazePOXIDE HCL 25 MG CAPSULE NG SCH (05:34)
[2017-08-23] MEDS: HydrALAZINE HCL 20 MG/ML VIAL IVP PRN ×3 (05:34→15:07)
[2017-08-23 05:54] LABS: ANION GAP 1 mmol/L (8-16); CALCIUM, TOTAL 8.9 mg/dL (8.8-10.5); CARBON DIOXIDE 36 mmol/L (22-29); CHLORIDE 104 mmol/L (98-107); CREATININE 0.84 mg/dL (0.60-1.30); GLOMERULAR FILTR. RATE CALC > 60 mL/min (>60); GLUCOSE,RANDOM 169 mg/dL (70-110); SODIUM SERUM 141 mmol/L (136-145); UREA NITROGEN, BLOOD 21 mg/dL (7-18)
[2017-08-23] MEDS: VANCOMYCIN HCL 1 GM/D5% WATER 200 ML IV SCH ×3 (06:24→23:03)
[2017-08-23 06:48] LABS: GLUCOSE,POINT OF CARE 176 MG/DL (70-110)
[2017-08-23 06:49] LABS: GLUCOSE,POINT OF CARE 162 MG/DL (70-110)
[2017-08-23] MEDS: THIAMINE HCL 100 MG TABLET PO SCH (09:35)
[2017-08-23] MEDS: PANTOPRAZOLE SODIUM 40 MG/VIAL IVP SCH (09:35)
[2017-08-23] MEDS: DOCUSATE SODIUM 100 MG CAPSULE PO SCH ×2 (09:35→20:29)
[2017-08-23] MEDS: MULTIVITAMINS WITH MINERALS, THERAPEUTIC 15 ML UDCUP GT SCH (09:35)
[2017-08-23] MEDS: METOPROLOL TARTRATE 25 MG TABLET PO SCH ×2 (09:35→20:29)
[2017-08-23] MEDS: HEPARIN SODIUM,PORCINE 5,000 UNITS/ML VIAL SQ SCH ×3 (09:35→23:31)
[2017-08-23] MEDS: HydrALAZINE HCL 10 MG TABLET PO SCH ×4 (09:35→20:31)
[2017-08-23] MEDS: MORPHINE SULFATE 4 MG/ML SYRINGE IVP PRN ×3 (09:54→20:29)
[2017-08-23 13:37] LABS: GLUCOSE,POINT OF CARE 147 MG/DL (70-110)
[2017-08-23] MEDS ORDERED: SODIUM CHLORIDE 0.9% 250 ML IV ONE (18:11)
[2017-08-23 18:22] LABS: GLUCOSE,POINT OF CARE 173 MG/DL (70-110)
[2017-08-23] MEDS: MAGNESIUM HYDROXIDE SUSPENSION 30 ML UDCUP PO PRN (20:29)
[2017-08-24] VITALS (8 sets, daily range): BP systolic 128–160; BP diastolic 64–83
[2017-08-24] MEDS: MORPHINE SULFATE 4 MG/ML SYRINGE IVP PRN ×2 (02:03→17:10)
[2017-08-24] MEDS ORDERED: SODIUM CHLORIDE 0.9% 250 ML IV ONE (02:34)
[2017-08-24] MEDS: ALBUTEROL SULFATE 2.5 MG/0.5 ML NEB SOLUTION NEB SCH ×6 (03:44→22:15)
[2017-08-24] MEDS: IPRATROPIUM BROMIDE 0.5 MG/2.5 ML NEB SOLUTION NEB SCH ×6 (03:44→22:15)
[2017-08-24] MEDS: PIPERACILLIN/TAZO 3.375 GM/D5W 50 ML IV SCH ×4 (03:59→21:46)
[2017-08-24] MEDS: INSULIN REGULAR, HUMAN 100 UNITS/ML SQ PRN ×3 (04:51→19:01)
[2017-08-24 05:21] LABS: HEMATOCRIT 34.9 % (41-53); HEMOGLOBIN 11.9 g/dL (13.5-17.5); MEAN CORPUSCULAR HEMOGLOBIN 34.8 pg (26.0-34.0); MEAN CORPUSCULAR HGB CONC 34.1 G/dL (31.0-37.0); MEAN CORPUSCULAR VOLUME 102 fL (80-100); PLATELET COUNT (AUTO) 111 K/uL (150-450); RED BLOOD CELL COUNT(AUTO) 3.42 MIL/uL (4.50-5.90)
[2017-08-24 05:23] LABS: GLUCOSE,POINT OF CARE 161 MG/DL (70-110)
[2017-08-24 05:23] LABS: GLUCOSE,POINT OF CARE 181 MG/DL (70-110)
[2017-08-24 05:45] LABS: ANION GAP 2 mmol/L (8-16); CALCIUM, TOTAL 8.6 mg/dL (8.8-10.5); CARBON DIOXIDE 34 mmol/L (22-29); CHLORIDE 105 mmol/L (98-107); CREATININE 0.81 mg/dL (0.60-1.30); GLOMERULAR FILTR. RATE CALC > 60 mL/min (>60); GLUCOSE,RANDOM 152 mg/dL (70-110); POTASSIUM 4.2 mmol/L (3.5-5.1); SODIUM SERUM 141 mmol/L (136-145); UREA NITROGEN, BLOOD 24 mg/dL (7-18)
[2017-08-24] MEDS: VANCOMYCIN HCL 1 GM/D5% WATER 200 ML IV SCH ×2 (06:18→15:59)
[2017-08-24 08:31] LABS: BAND NEUTROPHILS % (MANUAL) 4 % (0-5); BASOPHILS % (MANUAL) 1 % (0-2); EOSINOPHILS % (MANUAL) 3 % (1-6); LYMPHOCYTES % (MANUAL) 15 % (22-44); MONOCYTES % (MANUAL) 5 % (2-9); SEGMENTED NEUTROPHILS % 72 % (40-70)
[2017-08-24 08:32] LABS: PLATELET MORPHOLOGY COMMENT LARGE PLTS PRESENT
[2017-08-24] MEDS: HEPARIN SODIUM,PORCINE 5,000 UNITS/ML VIAL SQ SCH ×2 (08:40→17:07)
[2017-08-24] MEDS: HydrALAZINE HCL 10 MG TABLET PO SCH ×4 (08:41→21:47)
[2017-08-24] MEDS: THIAMINE HCL 100 MG TABLET PO SCH (08:41)
[2017-08-24] MEDS: PANTOPRAZOLE SODIUM 40 MG/VIAL IVP SCH (08:41)
[2017-08-24] MEDS: METOPROLOL TARTRATE 25 MG TABLET PO SCH ×2 (08:41→21:47)
[2017-08-24] MEDS: DOCUSATE SODIUM 100 MG CAPSULE PO SCH ×2 (08:41→21:47)
[2017-08-24] MEDS: MULTIVITAMINS WITH MINERALS, THERAPEUTIC 15 ML UDCUP GT SCH (09:15)
[2017-08-24 15:46] LABS: ABG A-A DIFF O2 156.3 mmHg (10-20.0); ABG BASE EXCESS 12.7 mmol/L (-2.0-3.0); ABG CARBOXYHEMOGLOBIN 1.1 % (0.0-1.5); ABG HCO3 34.8 mmol/L (22.0-26.0); ABG METHEMOGLOBIN 0.4 % (0.0-1.5); ABG OXYGEN CONTENT 16.9 mL/dL (15.0-23.0); ABG OXYGEN SATURATION 94.6 % (95.0-98.0); ABG OXYHEMOGLOBIN 93.2 % (94.0-100.0); ABG PCO2 50 mmHg (35-45); ABG PH 7.479 (7.35-7.450); ABG TOTAL HEMOGLOBIN 12.9 G/dL (12.0-18.0); O2 DEVICE,BLOOD GAS VENTILATOR (ROOM AIR); PO2, ARTERIAL BG 71.5 mmHg (84.0-92.0); SITE, BLOOD GAS RT RADIAL; SOURCE, BLOOD GAS ARTERIAL; TEMPERATURE, FAHRENHEIT, BG 98.6 FAHREN (96.0-98.6); VENT MODE, BG CPAP (ROOM AIR)
[2017-08-24 15:47] LABS: PEEP,BG 5 cm H2O; PRESSURE SUPPORT, BG 8 cm H2O
[2017-08-24 17:27] LABS: GLUCOSE,POINT OF CARE 152 MG/DL (70-110)
[2017-08-25] VITALS (8 sets, daily range): BP systolic 131–177; BP diastolic 73–90
[2017-08-25 00:18] LABS: GLUCOSE,POINT OF CARE 156 MG/DL (70-110)
[2017-08-25] MEDS: HEPARIN SODIUM,PORCINE 5,000 UNITS/ML VIAL SQ SCH ×4 (00:34→23:38)
[2017-08-25] MEDS: MORPHINE SULFATE 4 MG/ML SYRINGE IVP PRN (01:08)
[2017-08-25] MEDS ORDERED: SODIUM CHLORIDE 0.9% 250 ML IV ONE ×2 (02:56→23:26)
[2017-08-25] MEDS: ALBUTEROL SULFATE 2.5 MG/0.5 ML NEB SOLUTION NEB SCH ×6 (04:04→22:58)
[2017-08-25] MEDS: IPRATROPIUM BROMIDE 0.5 MG/2.5 ML NEB SOLUTION NEB SCH ×6 (04:04→22:58)
[2017-08-25] MEDS: PIPERACILLIN/TAZO 3.375 GM/D5W 50 ML IV SCH ×4 (04:17→21:16)
[2017-08-25 05:20] LABS: ANION GAP 2 mmol/L (8-16); CALCIUM, TOTAL 8.6 mg/dL (8.8-10.5); CARBON DIOXIDE 34 mmol/L (22-29); CHLORIDE 105 mmol/L (98-107); CREATININE 1.01 mg/dL (0.60-1.30); GLOMERULAR FILTR. RATE CALC > 60 mL/min (>60); GLUCOSE,RANDOM 153 mg/dL (70-110); POTASSIUM 3.6 mmol/L (3.5-5.1); SODIUM SERUM 141 mmol/L (136-145); UREA NITROGEN, BLOOD 24 mg/dL (7-18); VANCOMYCIN,RANDOM 18.6 mcg/mL (25.0-50.0)
[2017-08-25] MEDS: HydrALAZINE HCL 20 MG/ML VIAL IVP PRN (05:36)
[2017-08-25] MEDS: INSULIN REGULAR, HUMAN 100 UNITS/ML SQ PRN ×4 (05:37→23:40)
[2017-08-25] MEDS: MULTIVITAMINS WITH MINERALS, THERAPEUTIC 15 ML UDCUP GT SCH (08:02)
[2017-08-25] MEDS: HydrALAZINE HCL 10 MG TABLET PO SCH ×4 (08:03→21:16)
[2017-08-25] MEDS: PANTOPRAZOLE SODIUM 40 MG/VIAL IVP SCH (08:03)
[2017-08-25] MEDS: ACETAMINOPHEN 325 MG TABLET PO PRN ×3 (08:03→23:39)
[2017-08-25] MEDS: DOCUSATE SODIUM 100 MG CAPSULE PO SCH ×2 (08:04→21:16)
[2017-08-25] MEDS: METOPROLOL TARTRATE 25 MG TABLET PO SCH ×2 (08:04→21:16)
[2017-08-25] MEDS: THIAMINE HCL 100 MG TABLET PO SCH (08:04)
[2017-08-25] MEDS: VANCOMYCIN HCL 1 GM/D5% WATER 200 ML IV SCH (08:05)
[2017-08-25 08:22] LABS: GLUCOSE,POINT OF CARE 129 MG/DL (70-110)
[2017-08-25 08:23] LABS: GLUCOSE,POINT OF CARE 154 MG/DL (70-110)
[2017-08-25 13:32] LABS: GLUCOSE,POINT OF CARE 181 MG/DL (70-110)
[2017-08-25 17:13] LABS: GLUCOSE,POINT OF CARE 161 MG/DL (70-110)
[2017-08-26] VITALS: BP 172/94
[2017-08-26 01:23] LABS: GLUCOSE,POINT OF CARE 192 MG/DL (70-110)
[2017-08-26] MEDS: HydrALAZINE HCL 20 MG/ML VIAL IVP PRN ×2 (01:34→14:44)
[2017-08-26] MEDS: ALBUTEROL SULFATE 2.5 MG/0.5 ML NEB SOLUTION NEB SCH ×6 (02:59→23:00)
[2017-08-26] MEDS: IPRATROPIUM BROMIDE 0.5 MG/2.5 ML NEB SOLUTION NEB SCH ×6 (02:59→23:00)
[2017-08-26 04:00] VITALS: BP 125/70
[2017-08-26] MEDS: PIPERACILLIN/TAZO 3.375 GM/D5W 50 ML IV SCH ×4 (04:46→21:01)
[2017-08-26] MEDS: INSULIN REGULAR, HUMAN 100 UNITS/ML SQ PRN ×3 (04:47→23:57)
[2017-08-26 05:29] LABS: ANION GAP 4 mmol/L (8-16); CALCIUM, TOTAL 8.5 mg/dL (8.8-10.5); CARBON DIOXIDE 32 mmol/L (22-29); CHLORIDE 103 mmol/L (98-107); CREATININE 0.88 mg/dL (0.60-1.30); GLOMERULAR FILTR. RATE CALC > 60 mL/min (>60); GLUCOSE,RANDOM 172 mg/dL (70-110); POTASSIUM 3.5 mmol/L (3.5-5.1); SODIUM SERUM 139 mmol/L (136-145); UREA NITROGEN, BLOOD 21 mg/dL (7-18); VANCOMYCIN,RANDOM 12.3 mcg/mL (25.0-50.0)
[2017-08-26 05:57] LABS: EOSINOPHILS % (AUTO) 2.7 % (1.0-6.0); HEMATOCRIT 33.9 % (41-53); LYMPHOCYTES # (AUTO) 0.9 K/uL (1.0-4.8); LYMPHOCYTES % (AUTO) 16.6 % (22.0-44.0); MEAN CORPUSCULAR HGB CONC 35.3 G/dL (31.0-37.0); MEAN CORPUSCULAR VOLUME 105 fL (80-100); MONOCYTES # (AUTO) 0.5 K/uL (0.1-1.0); MONOCYTES % (AUTO) 8.4 % (2.0-9.0); NEUTROPHILS # (AUTO) 3.9 K/uL (1.8-7.7); NEUTROPHILS % (AUTO) 71.3 % (40.0-70.0); PLATELET COUNT (AUTO) 142 K/uL (150-450); RED BLOOD CELL COUNT(AUTO) 3.24 MIL/uL (4.50-5.90)
[2017-08-26 06:43] LABS: GLUCOSE,POINT OF CARE 165 MG/DL (70-110)
[2017-08-26 08:00] VITALS: BP 130/80
[2017-08-26] MEDS: VANCOMYCIN HCL 1 GM/D5% WATER 200 ML IV SCH (08:15)
[2017-08-26] MEDS: PANTOPRAZOLE SODIUM 40 MG/VIAL IVP SCH (08:16)
[2017-08-26] MEDS: MULTIVITAMINS WITH MINERALS, THERAPEUTIC 15 ML UDCUP GT SCH (08:16)
[2017-08-26] MEDS: HEPARIN SODIUM,PORCINE 5,000 UNITS/ML VIAL SQ SCH ×3 (08:16→23:56)
[2017-08-26] MEDS: THIAMINE HCL 100 MG TABLET PO SCH (08:16)
[2017-08-26] MEDS: ACETAMINOPHEN 325 MG TABLET PO PRN ×2 (08:17→16:54)
[2017-08-26] MEDS: METOPROLOL TARTRATE 25 MG TABLET PO SCH ×2 (08:17→20:44)
[2017-08-26] MEDS: HydrALAZINE HCL 10 MG TABLET PO SCH ×4 (08:17→20:44)
[2017-08-26] MEDS: DOCUSATE SODIUM 100 MG CAPSULE PO SCH ×2 (08:18→20:44)
[2017-08-26 12:00] VITALS: BP 165/80
[2017-08-26 12:40] LABS: ABG A-A DIFF O2 170.9 mmHg (10-20.0); ABG BASE EXCESS 6.1 mmol/L (-2.0-3.0); ABG CARBOXYHEMOGLOBIN 0.7 % (0.0-1.5); ABG HCO3 29.6 mmol/L (22.0-26.0); ABG OXYGEN CONTENT 16.6 mL/dL (15.0-23.0); ABG OXYGEN SATURATION 94.2 % (95.0-98.0); ABG OXYHEMOGLOBIN 93.5 % (94.0-100.0); ABG PCO2 40 mmHg (35-45); ABG PH 7.488 (7.35-7.450); ABG TOTAL HEMOGLOBIN 12.6 G/dL (12.0-18.0); PO2, ARTERIAL BG 68.6 mmHg (84.0-92.0); SOURCE, BLOOD GAS ARTERIAL; TEMPERATURE, FAHRENHEIT, BG 98.4 FAHREN (96.0-98.6)
[2017-08-26 12:41] LABS: O2 DEVICE,BLOOD GAS VENTILATOR (ROOM AIR); PRESSURE SUPPORT, BG 8 cm H2O; SITE, BLOOD GAS LFT RADIAL; VENT MODE, BG CPAP (ROOM AIR)
[2017-08-26 13:22] LABS: GLUCOSE,POINT OF CARE 173 MG/DL (70-110)
[2017-08-26 16:00] VITALS: BP 191/96
[2017-08-26 20:00] VITALS: BP 124/66
[2017-08-26] MEDS ORDERED: SODIUM CHLORIDE 0.9% 250 ML IV ONE (20:40)
[2017-08-26] MEDS: VANCOMYCIN HCL 750 MG in DEXTROSE 5%-WATER 250 ML IV SCH (20:44)
[2017-08-26 21:17] LABS: GLUCOSE,POINT OF CARE 136 MG/DL (70-110)
[2017-08-27] VITALS (8 sets, daily range): BP systolic 143–177; BP diastolic 81–98
[2017-08-27] MEDS: HydrALAZINE HCL 20 MG/ML VIAL IVP PRN ×3 (00:03→21:41)
[2017-08-27] MEDS: ALBUTEROL SULFATE 2.5 MG/0.5 ML NEB SOLUTION NEB SCH ×6 (03:01→22:40)
[2017-08-27] MEDS: IPRATROPIUM BROMIDE 0.5 MG/2.5 ML NEB SOLUTION NEB SCH ×6 (03:01→22:40)
[2017-08-27 05:07] LABS: ANION GAP 4 mmol/L (8-16); CALCIUM, TOTAL 8.6 mg/dL (8.8-10.5); CARBON DIOXIDE 31 mmol/L (22-29); CHLORIDE 103 mmol/L (98-107); CREATININE 0.87 mg/dL (0.60-1.30); GLOMERULAR FILTR. RATE CALC > 60 mL/min (>60); GLUCOSE,RANDOM 153 mg/dL (70-110); POTASSIUM 3.8 mmol/L (3.5-5.1); SODIUM SERUM 138 mmol/L (136-145); UREA NITROGEN, BLOOD 21 mg/dL (7-18)
[2017-08-27] MEDS: PIPERACILLIN/TAZO 3.375 GM/D5W 50 ML IV SCH ×4 (05:13→21:40)
[2017-08-27] MEDS: INSULIN REGULAR, HUMAN 100 UNITS/ML SQ PRN ×2 (06:05→12:56)
[2017-08-27 06:38] LABS: GLUCOSE,POINT OF CARE 192 MG/DL (70-110)
[2017-08-27 06:38] LABS: GLUCOSE,POINT OF CARE 167 MG/DL (70-110)
[2017-08-27] MEDS: PANTOPRAZOLE SODIUM 40 MG/VIAL IVP SCH (09:25)
[2017-08-27] MEDS: VANCOMYCIN HCL 750 MG in DEXTROSE 5%-WATER 250 ML IV SCH ×2 (09:25→19:40)
[2017-08-27] MEDS: MULTIVITAMINS WITH MINERALS, THERAPEUTIC 15 ML UDCUP GT SCH (09:25)
[2017-08-27] MEDS: HEPARIN SODIUM,PORCINE 5,000 UNITS/ML VIAL SQ SCH ×2 (09:25→17:15)
[2017-08-27] MEDS: AMINO ACIDS/PROTEIN HYDROLYS 30 ML TUBE PO SCH (09:25)
[2017-08-27] MEDS: THIAMINE HCL 100 MG TABLET PO SCH (09:26)
[2017-08-27] MEDS: HydrALAZINE HCL 10 MG TABLET PO SCH ×4 (09:26→21:00)
[2017-08-27] MEDS: DOCUSATE SODIUM 100 MG CAPSULE PO SCH ×2 (09:26→21:00)
[2017-08-27] MEDS: METOPROLOL TARTRATE 25 MG TABLET PO SCH ×2 (09:26→21:00)
[2017-08-27 11:59] LABS: ABG BASE EXCESS 2.8 mmol/L (-2.0-3.0); ABG CARBOXYHEMOGLOBIN 0.7 % (0.0-1.5); ABG METHEMOGLOBIN 0.1 % (0.0-1.5); ABG OXYGEN CONTENT 16.4 mL/dL (15.0-23.0); ABG OXYGEN SATURATION 94.5 % (95.0-98.0); ABG OXYHEMOGLOBIN 93.7 % (94.0-100.0); ABG PCO2 37 mmHg (35-45); ABG PH 7.475 (7.35-7.450); ABG TOTAL HEMOGLOBIN 12.4 G/dL (12.0-18.0); O2 DEVICE,BLOOD GAS VENTILATOR (ROOM AIR); PRESSURE SUPPORT, BG 8 cm H2O; SITE, BLOOD GAS LFT RADIAL; SOURCE, BLOOD GAS ARTERIAL; TEMPERATURE, FAHRENHEIT, BG 98.8 FAHREN (96.0-98.6); VENT MODE, BG CPAP (ROOM AIR)
[2017-08-27 15:02] LABS: ABG A-A DIFF O2 152.3 mmHg (10-20.0); ABG BASE EXCESS 5.1 mmol/L (-2.0-3.0); ABG CARBOXYHEMOGLOBIN 0.9 % (0.0-1.5); ABG HCO3 28.6 mmol/L (22.0-26.0); ABG METHEMOGLOBIN 0.1 % (0.0-1.5); ABG OXYGEN CONTENT 15.8 mL/dL (15.0-23.0); ABG OXYGEN SATURATION 86.9 % (95.0-98.0); ABG PCO2 38 mmHg (35-45); ABG PH 7.488 (7.35-7.450); ABG TOTAL HEMOGLOBIN 13.1 G/dL (12.0-18.0); PO2, ARTERIAL BG 52.5 mmHg (84.0-92.0); SOURCE, BLOOD GAS ARTERIAL; TEMPERATURE, FAHRENHEIT, BG 99.1 FAHREN (96.0-98.6)
[2017-08-27 15:03] LABS: O2 DEVICE,BLOOD GAS VENTI MASK (ROOM AIR); SITE, BLOOD GAS LFT RADIAL
[2017-08-27] MEDS: MORPHINE SULFATE 4 MG/ML SYRINGE IVP PRN (15:09)
[2017-08-27 16:13] LABS: GLUCOSE,POINT OF CARE 160 MG/DL (70-110)
[2017-08-27] MEDS: LORazepam 2 MG/ML VIAL IVP PRN ×2 (17:15→19:40)
[2017-08-27 18:55] LABS: ABG A-A DIFF O2 246.1 mmHg (10-20.0); ABG CARBOXYHEMOGLOBIN 0.9 % (0.0-1.5); ABG HCO3 27.8 mmol/L (22.0-26.0); ABG METHEMOGLOBIN 0.2 % (0.0-1.5); ABG OXYGEN CONTENT 17.4 mL/dL (15.0-23.0); ABG OXYGEN SATURATION 93.2 % (95.0-98.0); ABG OXYHEMOGLOBIN 92.2 % (94.0-100.0); ABG PCO2 40 mmHg (35-45); ABG PH 7.463 (7.35-7.450); ABG TOTAL HEMOGLOBIN 13.4 G/dL (12.0-18.0); O2 DEVICE,BLOOD GAS BIPAP (ROOM AIR); PO2, ARTERIAL BG 65.7 mmHg (84.0-92.0); SITE, BLOOD GAS RT RADIAL; SOURCE, BLOOD GAS ARTERIAL; TEMPERATURE, FAHRENHEIT, BG 98.6 FAHREN (96.0-98.6)
[2017-08-27 19:08] LABS: GLUCOSE,POINT OF CARE 105 MG/DL (70-110)
[2017-08-27] MEDS ORDERED: SODIUM CHLORIDE 0.9% 250 ML IV ONE (23:57)
[2017-08-28] VITALS (16 sets, daily range): BP systolic 139–195; BP diastolic 72–103
[2017-08-28] MEDS: HEPARIN SODIUM,PORCINE 5,000 UNITS/ML VIAL SQ SCH ×4 (00:03→23:58)
[2017-08-28] MEDS: MORPHINE SULFATE 4 MG/ML SYRINGE IVP PRN ×6 (01:52→22:21)
[2017-08-28 02:18] LABS: GLUCOSE,POINT OF CARE 127 MG/DL (70-110)
[2017-08-28] MEDS: LORazepam 2 MG/ML VIAL IVP PRN ×4 (02:43→23:58)
[2017-08-28] MEDS: HydrALAZINE HCL 20 MG/ML VIAL IVP PRN ×5 (02:43→23:58)
[2017-08-28] MEDS: ALBUTEROL SULFATE 2.5 MG/0.5 ML NEB SOLUTION NEB SCH ×6 (03:35→22:48)
[2017-08-28] MEDS: IPRATROPIUM BROMIDE 0.5 MG/2.5 ML NEB SOLUTION NEB SCH ×6 (03:35→22:48)
[2017-08-28] MEDS: PIPERACILLIN/TAZO 3.375 GM/D5W 50 ML IV SCH ×4 (03:39→22:20)
[2017-08-28 05:20] LABS: ANION GAP 8 mmol/L (8-16); CALCIUM, TOTAL 8.5 mg/dL (8.8-10.5); CARBON DIOXIDE 28 mmol/L (22-29); CHLORIDE 102 mmol/L (98-107); GLOMERULAR FILTR. RATE CALC > 60 mL/min (>60); GLUCOSE,RANDOM 136 mg/dL (70-110); POTASSIUM 3.8 mmol/L (3.5-5.1); SODIUM SERUM 138 mmol/L (136-145); UREA NITROGEN, BLOOD 20 mg/dL (7-18); VANCOMYCIN,RANDOM 15.1 mcg/mL (25.0-50.0)
[2017-08-28 05:30] LABS: HEMATOCRIT 35.1 % (41-53); HEMOGLOBIN 12.3 g/dL (13.5-17.5); MEAN CORPUSCULAR HEMOGLOBIN 36.1 pg (26.0-34.0); MEAN CORPUSCULAR HGB CONC 35.1 G/dL (31.0-37.0); MEAN CORPUSCULAR VOLUME 103 fL (80-100); PLATELET COUNT (AUTO) 165 K/uL (150-450); RED BLOOD CELL COUNT(AUTO) 3.42 MIL/uL (4.50-5.90)
[2017-08-28 06:53] LABS: GLUCOSE,POINT OF CARE 131 MG/DL (70-110)
[2017-08-28] MEDS: AMINO ACIDS/PROTEIN HYDROLYS 30 ML TUBE PO SCH (08:00)
[2017-08-28] MEDS: MULTIVITAMINS WITH MINERALS, THERAPEUTIC 15 ML UDCUP GT SCH (09:00)
[2017-08-28] MEDS: DOCUSATE SODIUM 100 MG CAPSULE PO SCH ×2 (09:00→20:04)
[2017-08-28] MEDS: THIAMINE HCL 100 MG TABLET PO SCH (09:00)
[2017-08-28] MEDS: HydrALAZINE HCL 10 MG TABLET PO SCH ×3 (09:00→16:13)
[2017-08-28] MEDS: METOPROLOL TARTRATE 25 MG TABLET PO SCH ×2 (09:00→20:04)
[2017-08-28] MEDS: VANCOMYCIN HCL 750 MG in DEXTROSE 5%-WATER 250 ML IV SCH (09:11)
[2017-08-28] MEDS: PANTOPRAZOLE SODIUM 40 MG/VIAL IVP SCH (09:12)
[2017-08-28 09:50] LABS: BAND NEUTROPHILS % (MANUAL) 2 % (0-5); LYMPHOCYTES % (MANUAL) 31 % (22-44); MONOCYTES % (MANUAL) 1 % (2-9); SEGMENTED NEUTROPHILS % 66 % (40-70)
[2017-08-28 09:58] LABS: ABG A-A DIFF O2 261.4 mmHg (10-20.0); ABG BASE EXCESS 3.7 mmol/L (-2.0-3.0); ABG CARBOXYHEMOGLOBIN 1.5 % (0.0-1.5); ABG HCO3 27.2 mmol/L (22.0-26.0); ABG METHEMOGLOBIN 0.5 % (0.0-1.5); ABG OXYGEN CONTENT 15.6 mL/dL (15.0-23.0); ABG OXYGEN SATURATION 86.3 % (95.0-98.0); ABG OXYHEMOGLOBIN 84.6 % (94.0-100.0); ABG PCO2 41 mmHg (35-45); ABG TOTAL HEMOGLOBIN 13.1 G/dL (12.0-18.0); PO2, ARTERIAL BG 50.3 mmHg (84.0-92.0); SOURCE, BLOOD GAS ARTERIAL; TEMPERATURE, FAHRENHEIT, BG 97.2 FAHREN (96.0-98.6)
[2017-08-28 09:59] LABS: O2 DEVICE,BLOOD GAS VENTI MASK (ROOM AIR); SITE, BLOOD GAS RT RADIAL
[2017-08-28 14:14] LABS: ABG BASE EXCESS 4.2 mmol/L (-2.0-3.0); ABG CARBOXYHEMOGLOBIN 1.7 % (0.0-1.5); ABG HCO3 27.6 mmol/L (22.0-26.0); ABG METHEMOGLOBIN 0.4 % (0.0-1.5); ABG OXYGEN CONTENT 16.5 mL/dL (15.0-23.0); ABG OXYGEN SATURATION 91.5 % (95.0-98.0); ABG OXYHEMOGLOBIN 89.6 % (94.0-100.0); ABG PCO2 44 mmHg (35-45); ABG TOTAL HEMOGLOBIN 13.1 G/dL (12.0-18.0); O2 DEVICE,BLOOD GAS BIPAP (ROOM AIR); PO2, ARTERIAL BG 63.6 mmHg (84.0-92.0); SITE, BLOOD GAS RT RADIAL; SOURCE, BLOOD GAS ARTERIAL; TEMPERATURE, FAHRENHEIT, BG 98.6 FAHREN (96.0-98.6)
[2017-08-28] MEDS: INSULIN REGULAR, HUMAN 100 UNITS/ML SQ PRN (17:48)
[2017-08-28] MEDS: VANCOMYCIN HCL 1 GM/D5% WATER 200 ML IV SCH (20:01)
[2017-08-28] MEDS: HydrALAZINE HCL 25 MG TABLET PO SCH (20:03)
[2017-08-29] VITALS (10 sets, daily range): BP systolic 128–200; BP diastolic 65–110
[2017-08-29 00:27] LABS: GLUCOSE,POINT OF CARE 136 MG/DL (70-110)
[2017-08-29 00:27] LABS: GLUCOSE,POINT OF CARE 127 MG/DL (70-110)
[2017-08-29 00:27] LABS: GLUCOSE,POINT OF CARE 161 MG/DL (70-110)
[2017-08-29] MEDS: PIPERACILLIN/TAZO 3.375 GM/D5W 50 ML IV SCH ×4 (03:32→22:13)
[2017-08-29] MEDS: MORPHINE SULFATE 4 MG/ML SYRINGE IVP PRN ×5 (03:33→19:05)
[2017-08-29] MEDS: LORazepam 2 MG/ML VIAL IVP PRN ×2 (03:33→20:44)
[2017-08-29] MEDS: ALBUTEROL SULFATE 2.5 MG/0.5 ML NEB SOLUTION NEB SCH ×6 (03:46→23:23)
[2017-08-29] MEDS: IPRATROPIUM BROMIDE 0.5 MG/2.5 ML NEB SOLUTION NEB SCH ×6 (03:46→23:23)
[2017-08-29 04:46] LABS: ALBUMIN 2.1 g/dL (3.4-5.0); ANION GAP 7 mmol/L (8-16); CALCIUM, TOTAL 8.5 mg/dL (8.8-10.5); CARBON DIOXIDE 27 mmol/L (22-29); CHLORIDE 105 mmol/L (98-107); CREATININE 0.89 mg/dL (0.60-1.30); GLOMERULAR FILTR. RATE CALC > 60 mL/min (>60); GLUCOSE,RANDOM 140 mg/dL (70-110); POTASSIUM 3.2 mmol/L (3.5-5.1); SODIUM SERUM 139 mmol/L (136-145); UREA NITROGEN, BLOOD 19 mg/dL (7-18)
[2017-08-29] MEDS: HydrALAZINE HCL 20 MG/ML VIAL IVP PRN ×2 (05:08→22:16)
[2017-08-29] MEDS: INSULIN REGULAR, HUMAN 100 UNITS/ML SQ PRN ×2 (05:22→17:56)
[2017-08-29 06:48] LABS: GLUCOSE,POINT OF CARE 146 MG/DL (70-110)
[2017-08-29] MEDS: DOCUSATE SODIUM 100 MG CAPSULE PO SCH ×2 (09:00→20:44)
[2017-08-29] MEDS: VANCOMYCIN HCL 1 GM/D5% WATER 200 ML IV SCH ×2 (09:41→20:43)
[2017-08-29] MEDS: MULTIVITAMINS WITH MINERALS, THERAPEUTIC 15 ML UDCUP GT SCH (09:43)
[2017-08-29] MEDS: AMINO ACIDS/PROTEIN HYDROLYS 30 ML TUBE PO SCH (09:43)
[2017-08-29] MEDS: PANTOPRAZOLE SODIUM 40 MG/VIAL IVP SCH (09:43)
[2017-08-29] MEDS: HydrALAZINE HCL 25 MG TABLET PO SCH ×4 (09:44→20:44)
[2017-08-29] MEDS: ACETAMINOPHEN 325 MG TABLET PO PRN ×3 (09:44→22:16)
[2017-08-29] MEDS: THIAMINE HCL 100 MG TABLET PO SCH (09:44)
[2017-08-29] MEDS: HEPARIN SODIUM,PORCINE 5,000 UNITS/ML VIAL SQ SCH ×2 (09:45→17:24)
[2017-08-29] MEDS: METOPROLOL TARTRATE 25 MG TABLET PO SCH ×2 (09:45→20:44)
[2017-08-29 11:43] LABS: GLUCOSE,POINT OF CARE 128 MG/DL (70-110)
[2017-08-29] MEDS ORDERED: POTASSIUM CHLORIDE 10% 40 MEQ/30 ML LIQUID UDCUP NG PRN ×2 (13:45)
[2017-08-29] MEDS: HALOPERIDOL LACTATE 5 MG/ML VIAL IVP PRN ×2 (13:59→20:43)
[2017-08-29 15:12] LABS: ABG A-A DIFF O2 184.6 mmHg (10-20.0); ABG BASE EXCESS 2.2 mmol/L (-2.0-3.0); ABG CARBOXYHEMOGLOBIN 0.5 % (0.0-1.5); ABG HCO3 26.5 mmol/L (22.0-26.0); ABG METHEMOGLOBIN 0.1 % (0.0-1.5); ABG OXYGEN CONTENT 15.9 mL/dL (15.0-23.0); ABG OXYGEN SATURATION 90.8 % (95.0-98.0); ABG OXYHEMOGLOBIN 90.3 % (94.0-100.0); ABG PCO2 36 mmHg (35-45); ABG PH 7.477 (7.35-7.450); ABG TOTAL HEMOGLOBIN 12.5 G/dL (12.0-18.0); PO2, ARTERIAL BG 59.4 mmHg (84.0-92.0); SOURCE, BLOOD GAS ARTERIAL; TEMPERATURE, FAHRENHEIT, BG 99.2 FAHREN (96.0-98.6)
[2017-08-29 15:13] LABS: O2 DEVICE,BLOOD GAS HI FL CANNULA (ROOM AIR); SITE, BLOOD GAS RT RADIAL
[2017-08-30] VITALS: BP 148/76
[2017-08-30] MEDS: HEPARIN SODIUM,PORCINE 5,000 UNITS/ML VIAL SQ SCH ×4 (00:07→23:53)
[2017-08-30] MEDS: INSULIN REGULAR, HUMAN 100 UNITS/ML SQ PRN ×2 (00:25→23:56)
[2017-08-30] MEDS: ALBUTEROL SULFATE 2.5 MG/0.5 ML NEB SOLUTION NEB SCH ×6 (03:11→23:33)
[2017-08-30] MEDS: IPRATROPIUM BROMIDE 0.5 MG/2.5 ML NEB SOLUTION NEB SCH ×6 (03:12→23:33)
[2017-08-30] MEDS: LORazepam 2 MG/ML VIAL IVP PRN ×2 (03:29→21:49)
[2017-08-30] MEDS: PIPERACILLIN/TAZO 3.375 GM/D5W 50 ML IV SCH ×4 (03:29→21:50)
[2017-08-30] MEDS: HALOPERIDOL LACTATE 5 MG/ML VIAL IVP PRN ×3 (03:30→18:56)
[2017-08-30 04:00] VITALS: BP 169/88
[2017-08-30] MEDS: HydrALAZINE HCL 20 MG/ML VIAL IVP PRN ×2 (05:46→21:04)
[2017-08-30 06:02] LABS: ANION GAP 7 mmol/L (8-16); CARBON DIOXIDE 25 mmol/L (22-29); CHLORIDE 103 mmol/L (98-107); CREATININE 0.85 mg/dL (0.60-1.30); GLUCOSE,RANDOM 125 mg/dL (70-110); POTASSIUM 3.6 mmol/L (3.5-5.1); SODIUM SERUM 135 mmol/L (136-145); UREA NITROGEN, BLOOD 16 mg/dL (7-18)
[2017-08-30 06:03] LABS: CALCIUM, TOTAL 8.4 mg/dL (8.8-10.5); GLOMERULAR FILTR. RATE CALC > 60 mL/min (>60)
[2017-08-30 06:23] LABS: GLUCOSE,POINT OF CARE 163 MG/DL (70-110)
[2017-08-30 06:24] LABS: GLUCOSE,POINT OF CARE 169 MG/DL (70-110)
[2017-08-30 06:24] LABS: GLUCOSE,POINT OF CARE 134 MG/DL (70-110)
[2017-08-30] MEDS: VANCOMYCIN HCL 1 GM/D5% WATER 200 ML IV SCH ×2 (07:28→19:56)
[2017-08-30] MEDS: AMINO ACIDS/PROTEIN HYDROLYS 30 ML TUBE PO SCH (07:30)
[2017-08-30] MEDS: PANTOPRAZOLE SODIUM 40 MG/VIAL IVP SCH (07:30)
[2017-08-30] MEDS: MULTIVITAMINS WITH MINERALS, THERAPEUTIC 15 ML UDCUP GT SCH (07:30)
[2017-08-30] MEDS: ACETAMINOPHEN 325 MG TABLET PO PRN ×3 (07:31→21:49)
[2017-08-30] MEDS: THIAMINE HCL 100 MG TABLET PO SCH (07:31)
[2017-08-30] MEDS: HydrALAZINE HCL 25 MG TABLET PO SCH ×4 (07:32→19:56)
[2017-08-30] MEDS: MORPHINE SULFATE 4 MG/ML SYRINGE IVP PRN ×2 (07:32→17:47)
[2017-08-30] MEDS: DOCUSATE SODIUM 100 MG CAPSULE PO SCH ×2 (07:33→19:56)
[2017-08-30] MEDS: METOPROLOL TARTRATE 25 MG TABLET PO SCH ×2 (07:33→19:56)
[2017-08-30 08:00] VITALS: BP 168/92
[2017-08-30 08:37] LABS: ABG A-A DIFF O2 163.7 mmHg (10-20.0); ABG BASE EXCESS -0.2 mmol/L (-2.0-3.0); ABG CARBOXYHEMOGLOBIN 0.6 % (0.0-1.5); ABG HCO3 24.6 mmol/L (22.0-26.0); ABG METHEMOGLOBIN 0.1 % (0.0-1.5); ABG OXYGEN CONTENT 16.2 mL/dL (15.0-23.0); ABG OXYGEN SATURATION 95.6 % (95.0-98.0); ABG OXYHEMOGLOBIN 94.9 % (94.0-100.0); ABG PCO2 37 mmHg (35-45); ABG PH 7.431 (7.35-7.450); ABG TOTAL HEMOGLOBIN 12.1 G/dL (12.0-18.0); PO2, ARTERIAL BG 78.5 mmHg (84.0-92.0); SOURCE, BLOOD GAS ARTERIAL; TEMPERATURE, FAHRENHEIT, BG 99.3 FAHREN (96.0-98.6)
[2017-08-30 08:38] LABS: O2 DEVICE,BLOOD GAS BIPAP (ROOM AIR); SITE, BLOOD GAS RT RADIAL
[2017-08-30 12:00] VITALS: BP 160/81
[2017-08-30 16:00] VITALS: BP 142/81
[2017-08-30 17:18] LABS: GLUCOSE,POINT OF CARE 133 MG/DL (70-110)
[2017-08-30 17:43] LABS: GLUCOSE,POINT OF CARE 138 MG/DL (70-110)
[2017-08-30 20:00] VITALS: BP 196/100
[2017-08-31] VITALS (8 sets, daily range): BP systolic 99–212; BP diastolic 54–121
[2017-08-31] MEDS: ALBUTEROL SULFATE 2.5 MG/0.5 ML NEB SOLUTION NEB SCH ×6 (03:18→22:35)
[2017-08-31] MEDS: IPRATROPIUM BROMIDE 0.5 MG/2.5 ML NEB SOLUTION NEB SCH ×6 (03:18→22:35)
[2017-08-31] MEDS: PIPERACILLIN/TAZO 3.375 GM/D5W 50 ML IV SCH ×4 (04:04→23:00)
[2017-08-31] MEDS ORDERED: SODIUM CHLORIDE 0.9% 250 ML IV ONE (04:23)
[2017-08-31 05:43] LABS: ANION GAP 7 mmol/L (8-16); CALCIUM, TOTAL 8.2 mg/dL (8.8-10.5); CARBON DIOXIDE 27 mmol/L (22-29); CHLORIDE 104 mmol/L (98-107); CREATININE 0.98 mg/dL (0.60-1.30); GLOMERULAR FILTR. RATE CALC > 60 mL/min (>60); GLUCOSE,RANDOM 138 mg/dL (70-110); POTASSIUM 3.6 mmol/L (3.5-5.1); SODIUM SERUM 138 mmol/L (136-145); UREA NITROGEN, BLOOD 17 mg/dL (7-18); VANCOMYCIN,RANDOM 19.5 mcg/mL (25.0-50.0)
[2017-08-31 07:14] LABS: GLUCOSE,POINT OF CARE 156 MG/DL (70-110)
[2017-08-31 07:15] LABS: GLUCOSE,POINT OF CARE 130 MG/DL (70-110)
[2017-08-31] MEDS: HydrALAZINE HCL 25 MG TABLET PO SCH ×3 (08:47→15:21)
[2017-08-31] MEDS: PANTOPRAZOLE SODIUM 40 MG/VIAL IVP SCH (08:47)
[2017-08-31] MEDS: THIAMINE HCL 100 MG TABLET PO SCH (08:47)
[2017-08-31] MEDS: VANCOMYCIN HCL 1 GM/D5% WATER 200 ML IV SCH ×2 (08:47→20:47)
[2017-08-31] MEDS: MULTIVITAMINS WITH MINERALS, THERAPEUTIC 15 ML UDCUP GT SCH (08:48)
[2017-08-31] MEDS: HALOPERIDOL LACTATE 5 MG/ML VIAL IVP PRN (08:48)
[2017-08-31] MEDS: DOCUSATE SODIUM 100 MG CAPSULE PO SCH ×2 (08:48→20:50)
[2017-08-31] MEDS: METOPROLOL TARTRATE 25 MG TABLET PO SCH (08:48)
[2017-08-31] MEDS: AMINO ACIDS/PROTEIN HYDROLYS 30 ML TUBE PO SCH (08:52)
[2017-08-31] MEDS: HEPARIN SODIUM,PORCINE 5,000 UNITS/ML VIAL SQ SCH ×2 (08:52→15:21)
[2017-08-31] MEDS: HydrALAZINE HCL 20 MG/ML VIAL IVP PRN ×2 (11:08→23:09)
[2017-08-31] MEDS: LORazepam 2 MG/ML VIAL IVP PRN ×3 (11:36→23:44)
[2017-08-31] MEDS: INSULIN REGULAR, HUMAN 100 UNITS/ML SQ PRN ×3 (11:50→20:49)
[2017-08-31 12:28] LABS: GLUCOSE,POINT OF CARE 193 MG/DL (70-110)
[2017-08-31] MEDS: MORPHINE SULFATE 4 MG/ML SYRINGE IVP PRN (13:12)
[2017-08-31] MEDS ORDERED: METOPROLOL TARTRATE 25 MG TABLET PO ONE (14:30)
[2017-08-31] MEDS: METOPROLOL TARTRATE 50 MG TABLET PO SCH (20:47)
[2017-08-31] MEDS: HydrALAZINE HCL 50 MG TABLET PO SCH (20:48)
[2017-08-31 21:08] LABS: GLUCOSE,POINT OF CARE 165 MG/DL (70-110)
[2017-08-31 21:08] LABS: GLUCOSE,POINT OF CARE 170 MG/DL (70-110)
[2017-09-01] VITALS: BP 187/107
[2017-09-01] MEDS: MORPHINE SULFATE 4 MG/ML SYRINGE IVP PRN ×3 (00:18→14:45)
[2017-09-01] MEDS: ALBUTEROL SULFATE 2.5 MG/0.5 ML NEB SOLUTION NEB SCH ×6 (03:32→23:13)
[2017-09-01] MEDS: IPRATROPIUM BROMIDE 0.5 MG/2.5 ML NEB SOLUTION NEB SCH ×6 (03:32→23:13)
[2017-09-01 04:00] VITALS: BP 192/99
[2017-09-01] MEDS: PIPERACILLIN/TAZO 3.375 GM/D5W 50 ML IV SCH ×4 (04:09→21:49)
[2017-09-01 04:37] LABS: BASOPHILS % (AUTO) 1.5 % (0.0-2.0); EOSINOPHILS % (AUTO) 3.1 % (1.0-6.0); HEMATOCRIT 34.8 % (41-53); HEMOGLOBIN 12.4 g/dL (13.5-17.5); LYMPHOCYTES # (AUTO) 1.2 K/uL (1.0-4.8); LYMPHOCYTES % (AUTO) 18.9 % (22.0-44.0); MEAN CORPUSCULAR HEMOGLOBIN 35.2 pg (26.0-34.0); MEAN CORPUSCULAR HGB CONC 35.5 G/dL (31.0-37.0); MEAN CORPUSCULAR VOLUME 99 fL (80-100); MONOCYTES # (AUTO) 0.8 K/uL (0.1-1.0); MONOCYTES % (AUTO) 12.4 % (2.0-9.0); NEUTROPHILS # (AUTO) 4.2 K/uL (1.8-7.7); NEUTROPHILS % (AUTO) 64.1 % (40.0-70.0); PLATELET COUNT (AUTO) 185 K/uL (150-450); RED BLOOD CELL COUNT(AUTO) 3.51 MIL/uL (4.50-5.90); RED CELL DISTRIBUTION WIDTH 13.7 % (11.5-14.5)
[2017-09-01 04:56] LABS: ANION GAP 7 mmol/L (8-16); CALCIUM, TOTAL 8.7 mg/dL (8.8-10.5); CARBON DIOXIDE 25 mmol/L (22-29); CHLORIDE 103 mmol/L (98-107); CREATININE 0.83 mg/dL (0.60-1.30); GLOMERULAR FILTR. RATE CALC > 60 mL/min (>60); GLUCOSE,RANDOM 127 mg/dL (70-110); POTASSIUM 3.3 mmol/L (3.5-5.1); SODIUM SERUM 135 mmol/L (136-145); UREA NITROGEN, BLOOD 16 mg/dL (7-18)
[2017-09-01 04:57] LABS: GLUCOSE,POINT OF CARE 143 MG/DL (70-110)
[2017-09-01 04:57] LABS: GLUCOSE,POINT OF CARE 155 MG/DL (70-110)
[2017-09-01] MEDS: INSULIN REGULAR, HUMAN 100 UNITS/ML SQ PRN ×3 (05:06→17:42)
[2017-09-01] MEDS: LORazepam 2 MG/ML VIAL IVP PRN ×3 (05:19→20:04)
[2017-09-01] MEDS: POTASSIUM CHL 10 MEQ/WATER 50 ML IV PRN ×3 (05:19→07:55)
[2017-09-01] MEDS: DOCUSATE SODIUM 100 MG CAPSULE PO SCH ×2 (07:58→21:00)
[2017-09-01 08:00] VITALS: BP 151/85
[2017-09-01] MEDS: MULTIVITAMINS WITH MINERALS, THERAPEUTIC 15 ML UDCUP GT SCH (09:48)
[2017-09-01] MEDS: AMINO ACIDS/PROTEIN HYDROLYS 30 ML TUBE PO SCH (09:48)
[2017-09-01] MEDS: HydrALAZINE HCL 50 MG TABLET PO SCH ×4 (09:48→20:39)
[2017-09-01] MEDS: METOPROLOL TARTRATE 50 MG TABLET PO SCH ×2 (09:48→20:39)
[2017-09-01] MEDS: VANCOMYCIN HCL 1 GM/D5% WATER 200 ML IV SCH ×2 (09:48→20:03)
[2017-09-01] MEDS: THIAMINE HCL 100 MG TABLET PO SCH (09:48)
[2017-09-01] MEDS: PANTOPRAZOLE SODIUM 40 MG/VIAL IVP SCH (09:49)
[2017-09-01] MEDS: HEPARIN SODIUM,PORCINE 5,000 UNITS/ML VIAL SQ SCH ×3 (09:49→14:47)
[2017-09-01 12:00] VITALS: BP 145/77
[2017-09-01 12:04] LABS: GLUCOSE,POINT OF CARE 159 MG/DL (70-110)
[2017-09-01] MEDS ORDERED: SODIUM CHLORIDE 0.9% 250 ML IV ONE ×2 (12:19→22:54)
[2017-09-01] MEDS: MAGNESIUM SULFATE 2 GM in DEXTROSE 5%-WATER 50 ML IV PRN (13:56)
[2017-09-01 16:00] VITALS: BP 194/98
[2017-09-01] MEDS: HydrALAZINE HCL 20 MG/ML VIAL IVP PRN (16:28)
[2017-09-01] MEDS: AmLODIPine BESYLATE 10 MG TABLET PO SCH (16:40)
[2017-09-01] MEDS: HALOPERIDOL LACTATE 5 MG/ML VIAL IVP PRN (17:43)
[2017-09-01 20:00] VITALS: BP 176/101
[2017-09-01] MEDS: LISINOPRIL 10 MG TABLET PO SCH (20:39)
[2017-09-01] MEDS: ACETYLCYSTEINE 10% 100 MG/ML 4 ML NEB SOLUTION NEB SCH (23:13)
[2017-09-02] VITALS: BP 171/89
[2017-09-02] MEDS: HydrALAZINE HCL 20 MG/ML VIAL IVP PRN (00:21)
[2017-09-02] MEDS: HEPARIN SODIUM,PORCINE 5,000 UNITS/ML VIAL SQ SCH ×4 (00:21→23:15)
[2017-09-02] MEDS: INSULIN REGULAR, HUMAN 100 UNITS/ML SQ PRN ×4 (00:46→23:18)
[2017-09-02] MEDS: ALBUTEROL SULFATE 2.5 MG/0.5 ML NEB SOLUTION NEB SCH ×6 (03:31→23:25)
[2017-09-02] MEDS: IPRATROPIUM BROMIDE 0.5 MG/2.5 ML NEB SOLUTION NEB SCH ×6 (03:31→23:25)
[2017-09-02 04:00] VITALS: BP 137/77
[2017-09-02] MEDS: PIPERACILLIN/TAZO 3.375 GM/D5W 50 ML IV SCH ×4 (04:09→22:01)
[2017-09-02 05:11] LABS: ANION GAP 4 mmol/L (8-16); CALCIUM, TOTAL 8.3 mg/dL (8.8-10.5); CARBON DIOXIDE 26 mmol/L (22-29); CHLORIDE 104 mmol/L (98-107); CREATININE 0.84 mg/dL (0.60-1.30); GLOMERULAR FILTR. RATE CALC > 60 mL/min (>60); GLUCOSE,RANDOM 138 mg/dL (70-110); POTASSIUM 4.1 mmol/L (3.5-5.1); SODIUM SERUM 134 mmol/L (136-145); UREA NITROGEN, BLOOD 16 mg/dL (7-18); VANCOMYCIN,RANDOM 21.9 mcg/mL (25.0-50.0)
[2017-09-02 06:14] LABS: GLUCOSE,POINT OF CARE 175 MG/DL (70-110)
[2017-09-02 06:14] LABS: GLUCOSE,POINT OF CARE 129 MG/DL (70-110)
[2017-09-02] MEDS: ACETYLCYSTEINE 10% 100 MG/ML 4 ML NEB SOLUTION NEB SCH ×3 (07:52→23:25)
[2017-09-02 08:00] VITALS: BP 161/78
[2017-09-02] MEDS: AMINO ACIDS/PROTEIN HYDROLYS 30 ML TUBE PO SCH (08:18)
[2017-09-02] MEDS: VANCOMYCIN HCL 1 GM/D5% WATER 200 ML IV SCH ×2 (08:18→20:08)
[2017-09-02] MEDS: HydrALAZINE HCL 50 MG TABLET PO SCH ×4 (08:19→20:09)
[2017-09-02] MEDS: METOPROLOL TARTRATE 50 MG TABLET PO SCH ×3 (08:19→20:09)
[2017-09-02] MEDS: MULTIVITAMINS WITH MINERALS, THERAPEUTIC 15 ML UDCUP GT SCH (08:20)
[2017-09-02] MEDS: PANTOPRAZOLE SODIUM 40 MG/VIAL IVP SCH (08:20)
[2017-09-02] MEDS: DOCUSATE SODIUM 100 MG CAPSULE PO SCH ×2 (08:21→20:09)
[2017-09-02] MEDS: THIAMINE HCL 100 MG TABLET PO SCH (08:22)
[2017-09-02] MEDS: AmLODIPine BESYLATE 10 MG TABLET PO SCH (08:29)
[2017-09-02] MEDS ORDERED: MAGNESIUM SULFATE 2 GM in DEXTROSE 5%-WATER 50 ML IV ONE (09:00)
[2017-09-02] MEDS: LISINOPRIL 10 MG TABLET PO SCH ×2 (10:28→20:09)
[2017-09-02 12:00] VITALS: BP 153/93
[2017-09-02] MEDS ORDERED: SODIUM CHLORIDE 0.9% 100 ML ONE (13:29)
[2017-09-02 15:47] LABS: GLUCOSE,POINT OF CARE 192 MG/DL (70-110)
[2017-09-02 16:00] VITALS: BP 102/64
[2017-09-02 18:14] LABS: GLUCOSE,POINT OF CARE 162 MG/DL (70-110)
[2017-09-02 20:00] VITALS: BP 120/62
[2017-09-03] VITALS: BP 185/104
[2017-09-03] MEDS: HydrALAZINE HCL 20 MG/ML VIAL IVP PRN ×2 (00:49→15:22)
[2017-09-03] MEDS ORDERED: SODIUM CHLORIDE 0.9% 100 ML ONE (03:04)
[2017-09-03] MEDS: ALBUTEROL SULFATE 2.5 MG/0.5 ML NEB SOLUTION NEB SCH ×6 (03:42→22:58)
[2017-09-03] MEDS: IPRATROPIUM BROMIDE 0.5 MG/2.5 ML NEB SOLUTION NEB SCH ×6 (03:42→22:58)
[2017-09-03 04:00] VITALS: BP 113/60
[2017-09-03] MEDS: PIPERACILLIN/TAZO 3.375 GM/D5W 50 ML IV SCH ×2 (04:01→10:47)
[2017-09-03 04:54] LABS: EOSINOPHILS % (AUTO) 3.7 % (1.0-6.0); HEMATOCRIT 35.1 % (41-53); HEMOGLOBIN 12.4 g/dL (13.5-17.5); LYMPHOCYTES % (AUTO) 12.3 % (22.0-44.0); MEAN CORPUSCULAR HEMOGLOBIN 35.4 pg (26.0-34.0); MEAN CORPUSCULAR HGB CONC 35.5 G/dL (31.0-37.0); MEAN CORPUSCULAR VOLUME 100 fL (80-100); MONOCYTES # (AUTO) 1.1 K/uL (0.1-1.0); NEUTROPHILS # (AUTO) 5.6 K/uL (1.8-7.7); PLATELET COUNT (AUTO) 171 K/uL (150-450); RED BLOOD CELL COUNT(AUTO) 3.51 MIL/uL (4.50-5.90); RED CELL DISTRIBUTION WIDTH 13.8 % (11.5-14.5)
[2017-09-03 05:14] LABS: ANION GAP 4 mmol/L (8-16); CALCIUM, TOTAL 8.5 mg/dL (8.8-10.5); CARBON DIOXIDE 27 mmol/L (22-29); CHLORIDE 103 mmol/L (98-107); CREATININE 0.86 mg/dL (0.60-1.30); GLOMERULAR FILTR. RATE CALC > 60 mL/min (>60); GLUCOSE,RANDOM 154 mg/dL (70-110); PHOSPHORUS 4.3 mg/dL (2.5-4.9); POTASSIUM 4.3 mmol/L (3.5-5.1); SODIUM SERUM 134 mmol/L (136-145); UREA NITROGEN, BLOOD 17 mg/dL (7-18)
[2017-09-03 05:33] LABS: GLUCOSE,POINT OF CARE 160 MG/DL (70-110)
[2017-09-03] MEDS: INSULIN REGULAR, HUMAN 100 UNITS/ML SQ PRN ×3 (06:02→18:43)
[2017-09-03] MEDS: ACETYLCYSTEINE 10% 100 MG/ML 4 ML NEB SOLUTION NEB SCH ×2 (07:39→15:04)
[2017-09-03 08:00] VITALS: BP 157/81
[2017-09-03 08:18] LABS: GLUCOSE,POINT OF CARE 151 MG/DL (70-110)
[2017-09-03] MEDS: AMINO ACIDS/PROTEIN HYDROLYS 30 ML TUBE PO SCH (08:28)
[2017-09-03] MEDS: VANCOMYCIN HCL 1 GM/D5% WATER 200 ML IV SCH ×2 (08:30→20:45)
[2017-09-03] MEDS: PANTOPRAZOLE SODIUM 40 MG/VIAL IVP SCH (08:31)
[2017-09-03] MEDS: MULTIVITAMINS WITH MINERALS, THERAPEUTIC 15 ML UDCUP GT SCH (08:31)
[2017-09-03] MEDS: HEPARIN SODIUM,PORCINE 5,000 UNITS/ML VIAL SQ SCH ×2 (08:31→15:23)
[2017-09-03] MEDS: LISINOPRIL 10 MG TABLET PO SCH ×2 (08:32→20:45)
[2017-09-03] MEDS: THIAMINE HCL 100 MG TABLET PO SCH (08:32)
[2017-09-03] MEDS: METOPROLOL TARTRATE 50 MG TABLET PO SCH ×2 (08:32→20:45)
[2017-09-03] MEDS: AmLODIPine BESYLATE 10 MG TABLET PO SCH (08:32)
[2017-09-03] MEDS: DOCUSATE SODIUM 100 MG CAPSULE PO SCH ×2 (08:34→21:00)
[2017-09-03] MEDS: HydrALAZINE HCL 50 MG TABLET PO SCH ×4 (09:00→21:33)
[2017-09-03] MEDS: HALOPERIDOL LACTATE 5 MG/ML VIAL IVP PRN (11:32)
[2017-09-03] MEDS: MORPHINE SULFATE 4 MG/ML SYRINGE IVP PRN (11:33)
[2017-09-03] MEDS: LORazepam 2 MG/ML VIAL IVP PRN ×2 (11:33→15:23)
[2017-09-03 11:40] VITALS: BP 180/103
[2017-09-03 12:00] VITALS: BP_SYST 164; BP_SYST 177; BP_DIAS 89; BP_DIAS 96
[2017-09-03 15:54] LABS: GLUCOSE,POINT OF CARE 170 MG/DL (70-110)
[2017-09-03 16:00] VITALS: BP 167/86
[2017-09-03 19:23] LABS: GLUCOSE,POINT OF CARE 185 MG/DL (70-110)
[2017-09-03 21:39] LABS: ABG BASE EXCESS 0.3 mmol/L (-2.0-3.0); ABG CARBOXYHEMOGLOBIN 0.8 % (0.0-1.5); ABG HCO3 23.1 mmol/L (22.0-26.0); ABG METHEMOGLOBIN 0.2 % (0.0-1.5); ABG OXYGEN CONTENT 16.1 mL/dL (15.0-23.0); ABG OXYGEN SATURATION 87.1 % (95.0-98.0); ABG OXYHEMOGLOBIN 86.2 % (94.0-100.0); ABG TOTAL HEMOGLOBIN 13.3 G/dL (12.0-18.0); PO2, ARTERIAL BG 64.9 mmHg (84.0-92.0); SOURCE, BLOOD GAS ARTERIAL; TEMPERATURE, FAHRENHEIT, BG 98.6 FAHREN (96.0-98.6)
[2017-09-03 21:41] LABS: ABG PCO2 73 mmHg (35-45); ABG PH 7.206 (7.35-7.450); O2 DEVICE,BLOOD GAS BIPAP (ROOM AIR); SITE, BLOOD GAS RT RADIAL
[2017-09-03] MEDS ORDERED: RAPID SEQUENCE KIT [RSI] 1 EACH KIT ONE (21:47)
[2017-09-03] MEDS ORDERED: NOREPINEPHRINE 4 MG/D5%-WATER 250 ML IV ONE (22:27)
[2017-09-03] MEDS: NOREPINEPHRINE 4 MG/D5%-WATER 250 ML IV PRN (22:30)
[2017-09-03] MEDS ORDERED: DOPamine HCL 400 MG/D5%-WATER 250 ML IV ONE (22:46)
[2017-09-03] MEDS ORDERED: DOPamine HCL 400 MG/D5%-WATER 250 ML IV PRN (22:47)
[2017-09-03 22:58] LABS: ABG A-A DIFF O2 476.1 mmHg (10-20.0); ABG BASE EXCESS -6.8 mmol/L (-2.0-3.0); ABG CARBOXYHEMOGLOBIN 0.6 % (0.0-1.5); ABG HCO3 16.5 mmol/L (22.0-26.0); ABG METHEMOGLOBIN 0.5 % (0.0-1.5); ABG OXYGEN CONTENT 15.7 mL/dL (15.0-23.0); ABG OXYGEN SATURATION 87.5 % (95.0-98.0); ABG OXYHEMOGLOBIN 86.5 % (94.0-100.0); ABG TOTAL HEMOGLOBIN 12.8 G/dL (12.0-18.0); PO2, ARTERIAL BG 86.2 mmHg (84.0-92.0); SOURCE, BLOOD GAS ARTERIAL; TEMPERATURE, FAHRENHEIT, BG 98.6 FAHREN (96.0-98.6)
[2017-09-03 22:59] LABS: ABG PCO2 151 mmHg (35-45); ABG PH 6.866 (7.35-7.450); O2 DEVICE,BLOOD GAS VENTILATOR (ROOM AIR); PEEP,BG 0 cm H2O; SITE, BLOOD GAS RT RADIAL; VENT MODE, BG Press. Control Vent (ROOM AIR)
[2017-09-03] MEDS ORDERED: SODIUM CHLORIDE 0.9% 250 ML IV ONE (23:03)
[2017-09-04] VITALS: BP 147/81
[2017-09-04] LABS: ABG A-A DIFF O2 490.4 mmHg (10-20.0); ABG BASE EXCESS -6.1 mmol/L (-2.0-3.0); ABG CARBOXYHEMOGLOBIN 0.8 % (0.0-1.5); ABG HCO3 18.1 mmol/L (22.0-26.0); ABG METHEMOGLOBIN 0.3 % (0.0-1.5); ABG OXYGEN CONTENT 18.9 mL/dL (15.0-23.0); ABG OXYGEN SATURATION 98.2 % (95.0-98.0); ABG OXYHEMOGLOBIN 97.1 % (94.0-100.0); ABG TOTAL HEMOGLOBIN 13.7 G/dL (12.0-18.0); PO2, ARTERIAL BG 136.5 mmHg (84.0-92.0); SOURCE, BLOOD GAS ARTERIAL; TEMPERATURE, FAHRENHEIT, BG 98.6 FAHREN (96.0-98.6)
[2017-09-04 00:01] LABS: ABG PCO2 86 mmHg (35-45); ABG PH 7.065 (7.35-7.450); O2 DEVICE,BLOOD GAS VENTILATOR (ROOM AIR); PEEP,BG 0 cm H2O; SITE, BLOOD GAS RT RADIAL; VENT MODE, BG Press. Control Vent (ROOM AIR)
[2017-09-04] MEDS ORDERED: PHENYLEPHRINE 200 MG/D5%-WATER 250 ML IV PRN ×2 (00:51→12:15)
[2017-09-04] MEDS: HEPARIN SODIUM,PORCINE 5,000 UNITS/ML VIAL SQ SCH ×3 (00:58→18:01)
[2017-09-04] MEDS: INSULIN REGULAR, HUMAN 100 UNITS/ML SQ PRN ×2 (01:24→06:15)
[2017-09-04] MEDS: DOPamine HCL 400 MG/D5%-WATER 250 ML IV PRN ×3 (03:09→18:14)
[2017-09-04] MEDS: IPRATROPIUM BROMIDE 0.5 MG/2.5 ML NEB SOLUTION NEB SCH ×6 (03:45→23:22)
[2017-09-04] MEDS: ALBUTEROL SULFATE 2.5 MG/0.5 ML NEB SOLUTION NEB SCH ×6 (03:45→23:22)
[2017-09-04 04:00] VITALS: BP 109/71
[2017-09-04 06:16] LABS: CALCIUM, TOTAL 8.7 mg/dL (8.8-10.5); CREATININE 1.37 mg/dL (0.60-1.30); POTASSIUM 5.2 mmol/L (3.5-5.1)
[2017-09-04] MEDS: NOREPINEPHRINE 4 MG/D5%-WATER 250 ML IV PRN ×3 (06:44→22:16)
[2017-09-04 06:59] LABS: HEMATOCRIT 41.8 % (41-53); HEMOGLOBIN 14.2 g/dL (13.5-17.5); MEAN CORPUSCULAR HEMOGLOBIN 34.9 pg (26.0-34.0); MEAN CORPUSCULAR HGB CONC 33.9 G/dL (31.0-37.0); MEAN CORPUSCULAR VOLUME 103 fL (80-100); PLATELET COUNT (AUTO) 297 K/uL (150-450); RED BLOOD CELL COUNT(AUTO) 4.07 MIL/uL (4.50-5.90); RED CELL DISTRIBUTION WIDTH 14.1 % (11.5-14.5)
[2017-09-04 07:25] LABS: ABG BASE EXCESS -6.4 mmol/L (-2.0-3.0); ABG CARBOXYHEMOGLOBIN 1.3 % (0.0-1.5); ABG HCO3 18.7 mmol/L (22.0-26.0); ABG METHEMOGLOBIN 0.5 % (0.0-1.5); ABG OXYGEN CONTENT 18.7 mL/dL (15.0-23.0); ABG OXYGEN SATURATION 94.1 % (95.0-98.0); ABG OXYHEMOGLOBIN 92.4 % (94.0-100.0); ABG PCO2 58 mmHg (35-45); ABG PH 7.195 (7.35-7.450); ABG TOTAL HEMOGLOBIN 14.4 G/dL (12.0-18.0); PO2, ARTERIAL BG 80.4 mmHg (84.0-92.0); SITE, BLOOD GAS RT RADIAL; SOURCE, BLOOD GAS ARTERIAL; TEMPERATURE, FAHRENHEIT, BG 98.6 FAHREN (96.0-98.6)
[2017-09-04 07:26] LABS: O2 DEVICE,BLOOD GAS VENTILATOR (ROOM AIR); PEEP,BG 0 cm H2O; VENT MODE, BG PC (ROOM AIR)
[2017-09-04 07:49] LABS: GLUCOSE,POINT OF CARE 149 MG/DL (70-110)
[2017-09-04 07:49] LABS: GLUCOSE,POINT OF CARE 260 MG/DL (70-110)
[2017-09-04 08:00] VITALS: BP 95/64
[2017-09-04] MEDS ORDERED: SODIUM BICARBONATE [ADULT] 8.4% 50 MEQ/50 ML SYRINGE IVP ONE ×3 (08:15→17:51)
[2017-09-04] MEDS: AMINO ACIDS/PROTEIN HYDROLYS 30 ML TUBE PO SCH (08:56)
[2017-09-04] MEDS: VANCOMYCIN HCL 1 GM/D5% WATER 200 ML IV SCH (08:58)
[2017-09-04] MEDS: THIAMINE HCL 100 MG TABLET PO SCH (08:59)
[2017-09-04] MEDS: PANTOPRAZOLE SODIUM 40 MG/VIAL IVP SCH (08:59)
[2017-09-04] MEDS: DOCUSATE SODIUM 100 MG CAPSULE PO SCH ×2 (09:00→21:00)
[2017-09-04] MEDS: HydrALAZINE HCL 50 MG TABLET PO SCH ×4 (09:00→21:00)
[2017-09-04] MEDS: AmLODIPine BESYLATE 10 MG TABLET PO SCH (09:00)
[2017-09-04] MEDS: LISINOPRIL 10 MG TABLET PO SCH ×2 (09:00→21:00)
[2017-09-04] MEDS: METOPROLOL TARTRATE 50 MG TABLET PO SCH ×2 (09:00→21:00)
[2017-09-04] MEDS: MULTIVITAMINS WITH MINERALS, THERAPEUTIC 15 ML UDCUP GT SCH (09:01)
[2017-09-04 09:41] LABS: BAND NEUTROPHILS % (MANUAL) 21 % (0-5); EOSINOPHILS % (MANUAL) 1 % (1-6); LYMPHOCYTES % (MANUAL) 4 % (22-44); MONOCYTES % (MANUAL) 9 % (2-9); SEGMENTED NEUTROPHILS % 65 % (40-70)
[2017-09-04 09:42] LABS: PLATELET MORPHOLOGY COMMENT GIANT PLTS PRESENT
[2017-09-04] MEDS: ACETYLCYSTEINE 10% 100 MG/ML 4 ML NEB SOLUTION NEB SCH ×4 (09:48→23:23)
[2017-09-04] MEDS ORDERED: SODIUM CHLORIDE 0.9% 500 ML IV ONE (11:38)
[2017-09-04 12:00] VITALS: BP 142/74
[2017-09-04] MEDS: PROPOFOL 1000 MG/ISO-OSM 100 ML IV PRN ×2 (12:00→19:45)
[2017-09-04] MEDS ORDERED: VASOPRESSIN 40 UNITS in DEXTROSE 5%-WATER 98 ML IV PRN (12:15)
[2017-09-04] MEDS ORDERED: HEPARIN SODIUM,PORCINE 1,000 UNITS/ML VIAL ONE (12:19)
[2017-09-04] MEDS ORDERED: HEPARIN SODIUM,PORCINE 1,000 UNITS/ML VIAL IVP ONE ×2 (12:30)
[2017-09-04 12:45] LABS: ABG A-A DIFF O2 560.1 mmHg (10-20.0); ABG CARBOXYHEMOGLOBIN 1.2 % (0.0-1.5); ABG HCO3 24.8 mmol/L (22.0-26.0); ABG METHEMOGLOBIN 0.5 % (0.0-1.5); ABG OXYGEN CONTENT 18.7 mL/dL (15.0-23.0); ABG OXYGEN SATURATION 98.7 % (95.0-98.0); ABG PCO2 48 mmHg (35-45); ABG PH 7.358 (7.35-7.450); ABG TOTAL HEMOGLOBIN 13.6 G/dL (12.0-18.0); O2 DEVICE,BLOOD GAS VENTILATOR (ROOM AIR); PO2, ARTERIAL BG 108.1 mmHg (84.0-92.0); SITE, BLOOD GAS ARTERIAL LINE; SOURCE, BLOOD GAS ARTERIAL; TEMPERATURE, FAHRENHEIT, BG 96.2 FAHREN (96.0-98.6)
[2017-09-04 12:46] LABS: PEEP,BG 0 cm H2O; VENT MODE, BG Press. Control Vent (ROOM AIR)
[2017-09-04 13:06] LABS: CALCIUM, TOTAL 8.2 mg/dL (8.8-10.5); CREATININE 1.94 mg/dL (0.60-1.30); POTASSIUM 5.8 mmol/L (3.5-5.1)
[2017-09-04 13:18] LABS: BILIRUBIN,TOTAL 1.3 mg/dL (0.1-1.0); MAGNESIUM 1.8 mg/dL (1.80-2.40); PHOSPHORUS 7.2 mg/dL (2.5-4.9); TOTAL PROTEIN, SERUM 8.4 g/dL (6.4-8.2)
[2017-09-04 16:00] VITALS: BP 95/64
[2017-09-04] MEDS ORDERED: EPINEPHrine 1:10,000 [1 MG/10 ML] SYRINGE IVP ONE (17:51)
[2017-09-04] MEDS ORDERED: ETOMIDATE 2 MG/ML 10 ML VIAL IVP ONE (17:52)
[2017-09-04] MEDS ORDERED: VECURONIUM BROMIDE 10 MG/VIAL IVP ONE (17:55)
[2017-09-04] MEDS ORDERED: SUCCINYLCHOLINE CHLORIDE 20 MG/ML 10 ML VIAL IM ONE (17:55)
[2017-09-04 18:19] LABS: GLUCOSE,POINT OF CARE 118 MG/DL (70-110)
[2017-09-04 19:31] LABS: ABG BASE EXCESS -5.7 mmol/L (-2.0-3.0); ABG CARBOXYHEMOGLOBIN 0.7 % (0.0-1.5); ABG METHEMOGLOBIN 0.2 % (0.0-1.5); ABG OXYGEN CONTENT 16.1 mL/dL (15.0-23.0); ABG OXYGEN SATURATION 95.1 % (95.0-98.0); ABG OXYHEMOGLOBIN 94.2 % (94.0-100.0); ABG PCO2 41 mmHg (35-45); ABG PH 7.316 (7.35-7.450); ABG TOTAL HEMOGLOBIN 12.1 G/dL (12.0-18.0); PO2, ARTERIAL BG 77.1 mmHg (84.0-92.0); TEMPERATURE, FAHRENHEIT, BG 97.2 FAHREN (96.0-98.6)
[2017-09-04 19:32] LABS: SITE, BLOOD GAS RT FEMORAL; SOURCE, BLOOD GAS ART LINE
[2017-09-04 19:33] LABS: O2 DEVICE,BLOOD GAS VENTILATOR (ROOM AIR); PEEP,BG 0 cm H2O; SPONTANEOUS VT, BG 452 ml; VENT MODE, BG PC (ROOM AIR)
[2017-09-04 19:58] LABS: HEMATOCRIT 35.4 % (41-53); MEAN CORPUSCULAR HEMOGLOBIN 34.1 pg (26.0-34.0); MEAN CORPUSCULAR VOLUME 100 fL (80-100); PLATELET COUNT (AUTO) 213 K/uL (150-450); RED BLOOD CELL COUNT(AUTO) 3.54 MIL/uL (4.50-5.90); RED CELL DISTRIBUTION WIDTH 13.8 % (11.5-14.5)
[2017-09-04 20:00] VITALS: BP 108/41
[2017-09-04 20:23] LABS: CALCIUM, TOTAL 7.9 mg/dL (8.8-10.5); CREATININE 2.36 mg/dL (0.60-1.30); POTASSIUM 5.9 mmol/L (3.5-5.1)
[2017-09-04 20:46] LABS: BAND NEUTROPHILS % (MANUAL) 25 % (0-5); LYMPHOCYTES % (MANUAL) 4 % (22-44); MONOCYTES % (MANUAL) 8 % (2-9); PLATELET MORPHOLOGY COMMENT GIANT PLTS PRESENT; SEGMENTED NEUTROPHILS % 63 % (40-70); WBC MORPHOLOGY TOXIC VACUOLATION
[2017-09-04] MEDS ORDERED: SODIUM CHLORIDE 0.9% 2,000 ML IV ONE (22:28)
[2017-09-04] MEDS ORDERED: [UNRECOGNIZED DRUG - OTHER] IRRIG PRN (22:45)
[2017-09-04] MEDS ORDERED: SODIUM CITRATE 4% CATH FLUSH 5 ML SYRINGE IVP PRN ×2 (22:45)
[2017-09-04] MEDS ORDERED: HEPARIN SODIUM,PORCINE 1,000 UNITS/ML VIAL IVP PRN ×2 (22:45)
[2017-09-04] MEDS ORDERED: [UNRECOGNIZED DRUG - OTHER] IRRIG PRN (22:45)
[2017-09-04] MEDS ORDERED: [UNRECOGNIZED DRUG - OTHER] IRRIG PRN (22:45)
[2017-09-04] MEDS ORDERED: POTASSIUM CHLORIDE IRRIG PRN (22:45)
[2017-09-04] MEDS ORDERED: POTASSIUM CHLORIDE 20 MEQ in NXSTAGE RFP-402 K0/CA3 5,000 ML IRRIG PRN (22:45)
[2017-09-04] MEDS ORDERED: POTASSIUM CHLORIDE 10 MEQ in NXSTAGE RFP-402 K0/CA3 5,000 ML IRRIG PRN (22:45)
[2017-09-04] MEDS ORDERED: POTASSIUM CHLORIDE 15 MEQ in NXSTAGE RFP-402 K0/CA3 5,000 ML IRRIG PRN (22:45)
[2017-09-05] VITALS: BP 125/43
[2017-09-05] MEDS: HEPARIN SODIUM,PORCINE 5,000 UNITS/ML VIAL SQ SCH ×3 (00:14→16:01)
[2017-09-05] MEDS: ALBUTEROL SULFATE 2.5 MG/0.5 ML NEB SOLUTION NEB SCH ×6 (03:04→23:37)
[2017-09-05] MEDS: IPRATROPIUM BROMIDE 0.5 MG/2.5 ML NEB SOLUTION NEB SCH ×6 (03:05→23:37)
[2017-09-05 04:00] VITALS: BP 124/41
[2017-09-05] MEDS: NOREPINEPHRINE 4 MG/D5%-WATER 250 ML IV PRN ×4 (04:12→21:41)
[2017-09-05 05:47] LABS: ALBUMIN 1.8 g/dL (3.4-5.0); CALCIUM, TOTAL 7.7 mg/dL (8.8-10.5); CREATININE 2.64 mg/dL (0.60-1.30); POTASSIUM 5.6 mmol/L (3.5-5.1)
[2017-09-05 05:53] LABS: GLUCOSE,POINT OF CARE 111 MG/DL (70-110)
[2017-09-05 05:53] LABS: GLUCOSE,POINT OF CARE 111 MG/DL (70-110)
[2017-09-05 05:53] LABS: GLUCOSE,POINT OF CARE 119 MG/DL (70-110)
[2017-09-05] MEDS: ACETYLCYSTEINE 10% 100 MG/ML 4 ML NEB SOLUTION NEB SCH ×3 (07:51→23:37)
[2017-09-05] MEDS: PROPOFOL 1000 MG/ISO-OSM 100 ML IV PRN (07:53)
[2017-09-05] MEDS: VANCOMYCIN HCL 1 GM/D5% WATER 200 ML IV SCH (07:54)
[2017-09-05 08:00] VITALS: BP 110/37
[2017-09-05] MEDS ORDERED: NXSTAGE RFP K0 IRRIG PRN (08:15)
[2017-09-05] MEDS ORDERED: POTASSIUM CHLORIDE IRRIG PRN (08:15)
[2017-09-05] MEDS ORDERED: [UNRECOGNIZED DRUG - OTHER] IRRIG PRN (08:15)
[2017-09-05] MEDS: HydrALAZINE HCL 50 MG TABLET PO SCH ×4 (08:53→21:00)
[2017-09-05] MEDS: LISINOPRIL 10 MG TABLET PO SCH ×2 (08:54→21:00)
[2017-09-05] MEDS: METOPROLOL TARTRATE 50 MG TABLET PO SCH ×2 (08:54→21:00)
[2017-09-05] MEDS: AmLODIPine BESYLATE 10 MG TABLET PO SCH (08:54)
[2017-09-05] MEDS: DOCUSATE SODIUM 100 MG CAPSULE PO SCH ×2 (08:54→21:00)
[2017-09-05] MEDS: THIAMINE HCL 100 MG TABLET PO SCH (09:01)
[2017-09-05] MEDS: AMINO ACIDS/PROTEIN HYDROLYS 30 ML TUBE PO SCH (09:01)
[2017-09-05] MEDS: MULTIVITAMINS WITH MINERALS, THERAPEUTIC 15 ML UDCUP GT SCH (09:01)
[2017-09-05] MEDS: PANTOPRAZOLE SODIUM 40 MG/VIAL IVP SCH (09:01)
[2017-09-05 09:53] LABS: ABG A-A DIFF O2 441.8 mmHg (10-20.0); ABG CARBOXYHEMOGLOBIN 0.4 % (0.0-1.5); ABG HCO3 16.2 mmol/L (22.0-26.0); ABG METHEMOGLOBIN 0.4 % (0.0-1.5); ABG OXYGEN CONTENT 15.4 mL/dL (15.0-23.0); ABG OXYGEN SATURATION 92.8 % (95.0-98.0); ABG OXYHEMOGLOBIN 92.1 % (94.0-100.0); ABG PCO2 57 mmHg (35-45); ABG TOTAL HEMOGLOBIN 11.8 G/dL (12.0-18.0); SOURCE, BLOOD GAS ARTERIAL; TEMPERATURE, FAHRENHEIT, BG 95.4 FAHREN (96.0-98.6)
[2017-09-05 09:54] LABS: ABG PH 7.137 (7.35-7.450); SITE, BLOOD GAS ARTERIAL LINE
[2017-09-05 09:55] LABS: O2 DEVICE,BLOOD GAS VENTILATOR (ROOM AIR); PEEP,BG 0 cm H2O; VENT MODE, BG Press. Control Vent (ROOM AIR)
[2017-09-05 09:56] LABS: SPONTANEOUS VT, BG 398 ml
[2017-09-05] MEDS ORDERED: *CLINICAL-CEFEPIME DOSING CLINICAL ONE (10:00)
[2017-09-05] MEDS ORDERED: DEXTROSE 5%-WATER 1,000 ML IV SCH (10:00)
[2017-09-05] MEDS ORDERED: SODIUM BICARBONATE 50 MEQ in DEXTROSE 5%-WATER 1,000 ML IV SCH (10:15)
[2017-09-05] MEDS ORDERED: SODIUM CHLORIDE 0.9% 500 ML IV ONE (10:36)
[2017-09-05 12:00] VITALS: BP 97/30
[2017-09-05] MEDS ORDERED: CEFEPIME HCL 2 GM in DEXTROSE 5%-WATER 20 ML IV ONE (12:00)
[2017-09-05] MEDS ORDERED: CEFEPIME HCL 2 GM in DEXTROSE 5%-WATER 50 ML IV SCH (12:00)
[2017-09-05] MEDS: METOCLOPRAMIDE HCL 5 MG/ML 2 ML VIAL IVP SCH ×2 (12:06→17:27)
[2017-09-05] MEDS: DOPamine HCL 400 MG/D5%-WATER 250 ML IV PRN (12:08)
[2017-09-05 12:30] LABS: CALCIUM, TOTAL 7.9 mg/dL (8.8-10.5); CREATININE 2.69 mg/dL (0.60-1.30); POTASSIUM 5.8 mmol/L (3.5-5.1)
[2017-09-05 12:34] LABS: MAGNESIUM 1.7 mg/dL (1.80-2.40)
[2017-09-05 13:00] LABS: PHOSPHORUS 9.4 mg/dL (2.5-4.9)
[2017-09-05] MEDS: MetroNIDAZOLE 500 MG/NACL 100 ML IV SCH ×2 (13:14→21:04)
[2017-09-05 13:32] LABS: ABG A-A DIFF O2 433.2 mmHg (10-20.0); ABG CARBOXYHEMOGLOBIN 0.8 % (0.0-1.5); ABG HCO3 15.9 mmol/L (22.0-26.0); ABG METHEMOGLOBIN 0.4 % (0.0-1.5); ABG OXYGEN CONTENT 14.5 mL/dL (15.0-23.0); ABG OXYGEN SATURATION 88.9 % (95.0-98.0); ABG OXYHEMOGLOBIN 87.8 % (94.0-100.0); ABG PH 7.075 (7.35-7.450); ABG TOTAL HEMOGLOBIN 11.7 G/dL (12.0-18.0); PO2, ARTERIAL BG 66.4 mmHg (84.0-92.0); SOURCE, BLOOD GAS ARTERIAL; TEMPERATURE, FAHRENHEIT, BG 96.4 FAHREN (96.0-98.6)
[2017-09-05 13:33] LABS: ABG PCO2 70 mmHg (35-45); O2 DEVICE,BLOOD GAS VENTILATOR (ROOM AIR); PEEP,BG 0 cm H2O; SITE, BLOOD GAS ARTERIAL LINE; VENT MODE, BG Press. Control Vent (ROOM AIR)
[2017-09-05 13:34] LABS: SPONTANEOUS VT, BG 428 ml
[2017-09-05] MEDS ORDERED: SODIUM CHLORIDE 0.9% 250 ML IV ONE (14:09)
[2017-09-05 15:53] LABS: ABG A-A DIFF O2 561.2 mmHg (10-20.0); ABG BASE EXCESS -10.5 mmol/L (-2.0-3.0); ABG CARBOXYHEMOGLOBIN 0.7 % (0.0-1.5); ABG HCO3 15.8 mmol/L (22.0-26.0); ABG METHEMOGLOBIN 0.4 % (0.0-1.5); ABG OXYGEN CONTENT 15.6 mL/dL (15.0-23.0); ABG PCO2 63 mmHg (35-45); ABG TOTAL HEMOGLOBIN 11.7 G/dL (12.0-18.0); PO2, ARTERIAL BG 89.1 mmHg (84.0-92.0); SOURCE, BLOOD GAS ARTERIAL; TEMPERATURE, FAHRENHEIT, BG 98.6 FAHREN (96.0-98.6)
[2017-09-05 15:54] LABS: ABG PH 7.102 (7.35-7.450); O2 DEVICE,BLOOD GAS VENTILATOR (ROOM AIR); PEEP,BG 0 cm H2O; SITE, BLOOD GAS ARTERIAL LINE; VT, ABG 500 ml
[2017-09-05 16:00] VITALS: BP 103/28
[2017-09-05] MEDS ORDERED: SODIUM BICARBONATE [ADULT] 8.4% 50 MEQ/50 ML SYRINGE IVP ONE (16:00)
[2017-09-05 17:33] LABS: GLUCOSE,POINT OF CARE 101 MG/DL (70-110)
[2017-09-05 20:00] VITALS: BP 102/24
[2017-09-05 20:32] LABS: GLUCOSE,POINT OF CARE 112 MG/DL (70-110)
[2017-09-05] MEDS ORDERED: CASPOFUNGIN ACETATE 70 MG in SODIUM CHLORIDE 0.9% 250 ML IV ONE (22:00)
[2017-09-06] VITALS: BP 117/33
[2017-09-06] MEDS ORDERED: MetroNIDAZOLE 500 MG TABLET NG SCH
[2017-09-06] MEDS: HEPARIN SODIUM,PORCINE 5,000 UNITS/ML VIAL SQ SCH ×2 (00:26→08:32)
[2017-09-06] MEDS: CEFEPIME HCL 2 GM in DEXTROSE 5%-WATER 50 ML IV SCH ×2 (00:26→11:54)
[2017-09-06] MEDS: METOCLOPRAMIDE HCL 5 MG/ML 2 ML VIAL IVP SCH ×2 (00:26→05:46)
[2017-09-06] MEDS: ALBUTEROL SULFATE 2.5 MG/0.5 ML NEB SOLUTION NEB SCH ×6 (03:09→23:30)
[2017-09-06] MEDS: IPRATROPIUM BROMIDE 0.5 MG/2.5 ML NEB SOLUTION NEB SCH ×6 (03:09→23:30)
[2017-09-06] MEDS: NOREPINEPHRINE 4 MG/D5%-WATER 250 ML IV PRN ×2 (03:28→10:16)
[2017-09-06 04:00] VITALS: BP 102/29
[2017-09-06] MEDS: DEXTROSE 50%-WATER 25 GM/50 ML SYRINGE IVP PRN ×3 (04:27→17:16)
[2017-09-06] MEDS: DOPamine HCL 400 MG/D5%-WATER 250 ML IV PRN (04:27)
[2017-09-06 05:36] LABS: HEMOGLOBIN 10.8 g/dL (13.5-17.5); MEAN CORPUSCULAR HEMOGLOBIN 34.8 pg (26.0-34.0); MEAN CORPUSCULAR HGB CONC 32.7 G/dL (31.0-37.0); MEAN CORPUSCULAR VOLUME 106 fL (80-100); PLATELET COUNT (AUTO) 174 K/uL (150-450); RED CELL DISTRIBUTION WIDTH 14.3 % (11.5-14.5)
[2017-09-06 05:44] LABS: ALBUMIN 1.6 g/dL (3.4-5.0); BILIRUBIN,TOTAL 3.2 mg/dL (0.1-1.0); CALCIUM, TOTAL 7.8 mg/dL (8.8-10.5); CREATININE 2.55 mg/dL (0.60-1.30); POTASSIUM 5.8 mmol/L (3.5-5.1); TOTAL PROTEIN, SERUM 6.9 g/dL (6.4-8.2); VANCOMYCIN,RANDOM 30.3 mcg/mL (25.0-50.0)
[2017-09-06] MEDS: MetroNIDAZOLE 500 MG/NACL 100 ML IV SCH ×3 (05:45→21:08)
[2017-09-06 06:43] LABS: GLUCOSE,POINT OF CARE 76 MG/DL (70-110)
[2017-09-06 06:43] LABS: GLUCOSE,POINT OF CARE 102 MG/DL (70-110)
[2017-09-06 06:43] LABS: GLUCOSE,POINT OF CARE 37 MG/DL (70-110)
[2017-09-06] MEDS: ACETYLCYSTEINE 10% 100 MG/ML 4 ML NEB SOLUTION NEB SCH ×3 (07:47→23:30)
[2017-09-06 08:00] VITALS: BP 109/31
[2017-09-06] MEDS: THIAMINE HCL 100 MG TABLET PO SCH (08:32)
[2017-09-06] MEDS: PANTOPRAZOLE SODIUM 40 MG/VIAL IVP SCH (08:32)
[2017-09-06] MEDS: AMINO ACIDS/PROTEIN HYDROLYS 30 ML TUBE PO SCH (08:32)
[2017-09-06] MEDS: VANCOMYCIN HCL 1 GM/D5% WATER 200 ML IV SCH (08:32)
[2017-09-06] MEDS: MULTIVITAMINS WITH MINERALS, THERAPEUTIC 15 ML UDCUP GT SCH (08:36)
[2017-09-06] MEDS: DOCUSATE SODIUM 100 MG CAPSULE PO SCH ×2 (09:00→21:00)
[2017-09-06] MEDS ORDERED: VANCOMYCIN HCL 1 GM/D5% WATER 200 ML IV PRN (10:00)
[2017-09-06 10:26] LABS: BAND NEUTROPHILS % (MANUAL) 68 % (0-5); LYMPHOCYTES % (MANUAL) 3 % (22-44); MYELOCYTES % 1 % (0-0); SEGMENTED NEUTROPHILS % 28 % (40-70)
[2017-09-06] MEDS: DOPamine HCL 800 MG/D5%-WATER 250 ML IV PRN (10:43)
[2017-09-06] MEDS: NOREPINEPHRINE BITARTRATE 16 MG in DEXTROSE 5%-WATER 234 ML IV PRN (10:44)
[2017-09-06 10:53] LABS: ABG A-A DIFF O2 542.1 mmHg (10-20.0); ABG BASE EXCESS -16.7 mmol/L (-2.0-3.0); ABG CARBOXYHEMOGLOBIN 0.4 % (0.0-1.5); ABG HCO3 12.1 mmol/L (22.0-26.0); ABG METHEMOGLOBIN 0.3 % (0.0-1.5); ABG OXYGEN CONTENT 15.9 mL/dL (15.0-23.0); ABG OXYGEN SATURATION 99.2 % (95.0-98.0); ABG OXYHEMOGLOBIN 98.5 % (94.0-100.0); ABG PCO2 41 mmHg (35-45); ABG TOTAL HEMOGLOBIN 11.2 G/dL (12.0-18.0); PO2, ARTERIAL BG 140.5 mmHg (84.0-92.0); SOURCE, BLOOD GAS ARTERIAL
[2017-09-06 10:54] LABS: ABG PH 7.109 (7.35-7.450); O2 DEVICE,BLOOD GAS VENTILATOR (ROOM AIR); SITE, BLOOD GAS ARTERIAL LINE; VT, ABG 500 ml
[2017-09-06 11:03] LABS: INR 2.7 (0.9-1.1); PROTHROMBIN TIME 27.5 SEC (9.4-11.6)
[2017-09-06 11:28] LABS: GLUCOSE,POINT OF CARE 62 MG/DL (70-110)
[2017-09-06 12:00] VITALS: BP 109/28
[2017-09-06] MEDS ORDERED: CEFEPIME HCL 2 GM in DEXTROSE 5%-WATER 50 ML IV SCH (12:00)
[2017-09-06 12:58] LABS: GLUCOSE,POINT OF CARE 122 MG/DL (70-110)
[2017-09-06 13:59] LABS: C.DIFF GDH ANTIGEN, Stool Negative (Negative)
[2017-09-06 14:00] LABS: C.DIFF TOXINS A&B, Stool Negative (Negative)
[2017-09-06 16:00] VITALS: BP 114/31
[2017-09-06 17:23] LABS: CALCIUM, TOTAL 7.7 mg/dL (8.8-10.5); CREATININE 2.08 mg/dL (0.60-1.30)
[2017-09-06 17:38] LABS: POTASSIUM 6.6 mmol/L (3.5-5.1)
[2017-09-06] MEDS ORDERED: DEXTROSE 10%-WATER 250 ML IV SCH (17:45)
[2017-09-06] MEDS ORDERED: DEXTROSE 10%-WATER 1,000 ML IV SCH (17:57)
[2017-09-06] MEDS: DEXTROSE 10%-WATER 1,000 ML IV SCH (18:12)
[2017-09-06 18:13] LABS: GLUCOSE,POINT OF CARE 104 MG/DL (70-110)
[2017-09-06 18:13] LABS: GLUCOSE,POINT OF CARE 33 MG/DL (70-110)
[2017-09-06] MEDS: POTASSIUM CHLORIDE 10 MEQ in NXSTAGE RFP-402 K0/CA3 5,000 ML IRRIG PRN ×3 (18:15→18:43)
[2017-09-06] MEDS ORDERED: SODIUM CHLORIDE 0.9% 250 ML IV ONE (18:40)
[2017-09-06 20:00] VITALS: BP 71/15
[2017-09-06] MEDS: VASOPRESSIN 40 UNITS in DEXTROSE 5%-WATER 98 ML IV PRN (21:11)
[2017-09-06] MEDS ORDERED: CASPOFUNGIN ACETATE 35 MG in SODIUM CHLORIDE 0.9% 100 ML IV SCH (22:00)
[2017-09-07] VITALS: BP 93/21
[2017-09-07] MEDS: DOPamine HCL 800 MG/D5%-WATER 250 ML IV PRN ×2 (00:32→09:13)
[2017-09-07] MEDS: CEFEPIME HCL 2 GM in DEXTROSE 5%-WATER 50 ML IV SCH ×2 (00:32→12:01)
[2017-09-07] MEDS: NOREPINEPHRINE BITARTRATE 16 MG in DEXTROSE 5%-WATER 234 ML IV PRN ×2 (01:20→13:51)
[2017-09-07] MEDS: ALBUTEROL SULFATE 2.5 MG/0.5 ML NEB SOLUTION NEB SCH ×4 (03:10→14:43)
[2017-09-07] MEDS: IPRATROPIUM BROMIDE 0.5 MG/2.5 ML NEB SOLUTION NEB SCH ×4 (03:10→14:43)
[2017-09-07 04:00] VITALS: BP 117/27
[2017-09-07] MEDS: DEXTROSE 10%-WATER 1,000 ML IV SCH ×2 (04:07→13:30)
[2017-09-07] MEDS: MetroNIDAZOLE 500 MG/NACL 100 ML IV SCH ×2 (05:05→12:45)
[2017-09-07 05:54] LABS: HEMATOCRIT 32.5 % (41-53); HEMOGLOBIN 10.2 g/dL (13.5-17.5); MEAN CORPUSCULAR HEMOGLOBIN 34.7 pg (26.0-34.0); MEAN CORPUSCULAR HGB CONC 31.5 G/dL (31.0-37.0); MEAN CORPUSCULAR VOLUME 110 fL (80-100); PLATELET COUNT (AUTO) 158 K/uL (150-450); RED BLOOD CELL COUNT(AUTO) 2.95 MIL/uL (4.50-5.90); RED CELL DISTRIBUTION WIDTH 14.9 % (11.5-14.5)
[2017-09-07 05:58] LABS: CALCIUM, TOTAL 7.6 mg/dL (8.8-10.5); CREATININE 1.76 mg/dL (0.60-1.30)
[2017-09-07 07:23] LABS: POTASSIUM 7.2 mmol/L (3.5-5.1)
[2017-09-07] MEDS: ACETYLCYSTEINE 10% 100 MG/ML 4 ML NEB SOLUTION NEB SCH ×2 (07:39→14:43)
[2017-09-07 08:00] VITALS: BP 107/33
[2017-09-07] MEDS: DOCUSATE SODIUM 100 MG CAPSULE PO SCH (09:00)
[2017-09-07] MEDS: PANTOPRAZOLE SODIUM 40 MG/VIAL IVP SCH (09:09)
[2017-09-07] MEDS: AMINO ACIDS/PROTEIN HYDROLYS 30 ML TUBE PO SCH (09:10)
[2017-09-07] MEDS: MULTIVITAMINS WITH MINERALS, THERAPEUTIC 15 ML UDCUP GT SCH (09:10)
[2017-09-07] MEDS: THIAMINE HCL 100 MG TABLET PO SCH (09:11)
[2017-09-07] MEDS: VASOPRESSIN 40 UNITS in DEXTROSE 5%-WATER 98 ML IV PRN (09:12)
[2017-09-07] MEDS: NXSTAGE RFP-402 K0/CA3 5,000 ML IRRIG PRN ×3 (10:04→15:04)
[2017-09-07 10:08] LABS: BAND NEUTROPHILS % (MANUAL) 61 % (0-5); LYMPHOCYTES % (MANUAL) 5 % (22-44); METAMYELOCYTES % 1 % (0-0); MONOCYTES % (MANUAL) 4 % (2-9); MYELOCYTES % 1 % (0-0); PLATELET MORPHOLOGY COMMENT GIANT PLTS PRESENT; SEGMENTED NEUTROPHILS % 28 % (40-70)
[2017-09-07 11:51] LABS: ABG METHEMOGLOBIN 0.4 % (0.0-1.5); SOURCE, BLOOD GAS ARTERIAL; TEMPERATURE, FAHRENHEIT, BG 98.6 FAHREN (96.0-98.6)
[2017-09-07 11:54] LABS: ABG A-A DIFF O2 515.2 mmHg (10-20.0); ABG BASE EXCESS -22.8 mmol/L (-2.0-3.0); ABG OXYGEN CONTENT 15.6 mL/dL (15.0-23.0); ABG OXYGEN SATURATION 97.7 % (95.0-98.0); ABG OXYHEMOGLOBIN 96.3 % (94.0-100.0); ABG PCO2 76 mmHg (35-45); ABG PH 6.804 (7.35-7.450); ABG TOTAL HEMOGLOBIN 11.4 G/dL (12.0-18.0)
[2017-09-07 11:55] LABS: ABG HCO3 7.9 mmol/L (22.0-26.0); O2 DEVICE,BLOOD GAS VENTILATOR (ROOM AIR); PEEP,BG 14 cm H2O; SITE, BLOOD GAS ARTERIAL LINE; VT, ABG 500 ml
[2017-09-07 12:00] VITALS: BP 100/31
[2017-09-07 13:51] VITALS: BP 110/35
[2017-09-07 13:51] LABS: ANION GAP 10 mmol/L (8-16); CALCIUM, TOTAL 7.6 mg/dL (8.8-10.5); CARBON DIOXIDE 18 mmol/L (22-29); CHLORIDE 96 mmol/L (98-107); CREATININE 1.03 mg/dL (0.60-1.30); GLOMERULAR FILTR. RATE CALC > 60 mL/min (>60); GLUCOSE,RANDOM 216 mg/dL (70-110); UREA NITROGEN, BLOOD 9 mg/dL (7-18)
[2017-09-07 13:53] LABS: SODIUM SERUM 124 mmol/L (136-145)
[2017-09-07 13:54] LABS: POTASSIUM 6.4 mmol/L (3.5-5.1)
[2017-09-07 14:01] LABS: ABG A-A DIFF O2 522.1 mmHg (10-20.0); ABG BASE EXCESS -24.1 mmol/L (-2.0-3.0); ABG CARBOXYHEMOGLOBIN 0.4 % (0.0-1.5); ABG METHEMOGLOBIN 0.5 % (0.0-1.5); ABG OXYGEN CONTENT 15.6 mL/dL (15.0-23.0); ABG OXYGEN SATURATION 97.9 % (95.0-98.0); ABG PCO2 63 mmHg (35-45); ABG TOTAL HEMOGLOBIN 11.3 G/dL (12.0-18.0); PO2, ARTERIAL BG 128.2 mmHg (84.0-92.0); SOURCE, BLOOD GAS ARTERIAL; TEMPERATURE, FAHRENHEIT, BG 98.6 FAHREN (96.0-98.6)
[2017-09-07 14:02] LABS: ABG HCO3 7.3 mmol/L (22.0-26.0); ABG PH 6.824 (7.35-7.450); O2 DEVICE,BLOOD GAS VENTILATOR (ROOM AIR); SITE, BLOOD GAS ARTERIAL LINE; VT, ABG 550 ml
[2017-09-07 14:03] LABS: PEEP,BG 10 cm H2O
[2017-09-07] MEDS ORDERED: SODIUM BICARBONATE [ADULT] 8.4% 50 MEQ/50 ML SYRINGE IVP ONE (14:15)
[2017-09-07] MEDS ORDERED: EPINEPHrine 1:10,000 [1 MG/10 ML] SYRINGE IVP ONE (15:13)
[2017-09-08 00:39] LABS: GLUCOSE,POINT OF CARE 128 MG/DL (70-110)
[2017-09-08 00:39] LABS: GLUCOSE,POINT OF CARE 134 MG/DL (70-110)
[2017-09-08 00:39] LABS: GLUCOSE,POINT OF CARE 144 MG/DL (70-110)
== END 2017-09-07 15:14 | disposition expired | DRG 812 ==
LOC: EMS 16:37 → ICU 21:00 → EDBD 21:00
PROVIDERS: ADMIT Internal Medicine; ATTEND Internal Medicine
PROC: 5A1955Z Respiratory Ventilation, Greater than 96 Consecutive Hours (ICD-10-PCS; principal; 2017-08-15)
PROC: 0BH17EZ Insertion of Endotracheal Airway into Trachea, Via Natural or Artificial Opening (ICD-10-PCS; 2017-08-15)
PROC: 5A09557 Assistance with Respiratory Ventilation, Greater than 96 Consecutive Hours, Continuous Positive Airway Pressure (ICD-10-PCS; 2017-08-27)
PROC: 5A1955Z Respiratory Ventilation, Greater than 96 Consecutive Hours (ICD-10-PCS; 2017-09-03)
PROC: 02HV33Z Insertion of Infusion Device into Superior Vena Cava, Percutaneous Approach (ICD-10-PCS; 2017-09-04)
PROC: 04HK33Z Insertion of Infusion Device into Right Femoral Artery, Percutaneous Approach (ICD-10-PCS; 2017-09-04)
PROC: 0W9B30Z Drainage of Left Pleural Cavity with Drainage Device, Percutaneous Approach (ICD-10-PCS; 2017-09-04)
PROC: 0W9930Z Drainage of Right Pleural Cavity with Drainage Device, Percutaneous Approach (ICD-10-PCS; 2017-09-04)
PROC: 5A1D90Z Performance of Urinary Filtration, Continuous, Greater than 18 hours Per Day (ICD-10-PCS; 2017-09-04)
PROC: 06HM33Z Insertion of Infusion Device into Right Femoral Vein, Percutaneous Approach (ICD-10-PCS; 2017-09-04)
PROC: 5A1D90Z Performance of Urinary Filtration, Continuous, Greater than 18 hours Per Day (ICD-10-PCS; 2017-09-05)
PROC: 5A1D90Z Performance of Urinary Filtration, Continuous, Greater than 18 hours Per Day (ICD-10-PCS; 2017-09-06)
PROC: 5A1D90Z Performance of Urinary Filtration, Continuous, Greater than 18 hours Per Day (ICD-10-PCS; 2017-09-07)
DX: T50.901A Poisoning by unspecified drugs, medicaments and biological substances, accidental (unintentional), initial encounter (principal); D65 Disseminated intravascular coagulation [defibrination syndrome]; J96.01 Acute respiratory failure with hypoxia; A41.02 Sepsis due to Methicillin resistant Staphylococcus aureus; K72.00 Acute and subacute hepatic failure without coma; G92 Toxic encephalopathy; N17.0 Acute kidney failure with tubular necrosis; J69.0 Pneumonitis due to inhalation of food and vomit; R13.10 Dysphagia, unspecified; I46.9 Cardiac arrest, cause unspecified; R65.21 Severe sepsis with septic shock; E43 Unspecified severe protein-calorie malnutrition; F10.129 Alcohol abuse with intoxication, unspecified; I10 Essential (primary) hypertension; J93.9 Pneumothorax, unspecified; E16.2 Hypoglycemia, unspecified; E87.5 Hyperkalemia; F11.90 Opioid use, unspecified, uncomplicated; I45.9 Conduction disorder, unspecified; J15.212 Pneumonia due to Methicillin resistant Staphylococcus aureus; M25.78 Osteophyte, vertebrae; M43.12 Spondylolisthesis, cervical region; M48.02 Spinal stenosis, cervical region; Y90.8 Blood alcohol level of 240 mg/100 ml or more; Y92.89 Other specified places as the place of occurrence of the external cause; Z22.322 Carrier or suspected carrier of Methicillin resistant Staphylococcus aureus
CPT/HCPCS: 31500; 51702; 70450; 72125; 74018; 76770; 82805; 83605; 83735; 84100; 84132; 84145; 84443; 85007; 87040; 87070; 87081; 87147; 87205; 87324; 87340; 87449; 90947; 92950; 93005; 94002; 94003; 94640; 94660; 94667; 94668; 94799; 95816; 96365; 96366; 96368; 96375; 97163; 97167; 97530; 97535; 99291; C9113; G0480; J0171; J0330; J0360; J0456; J0637; J0692; J0696; J1265; J1630; J1644; J2060; J2270; J2310; J2370; J2543; J2704; J2765; J3370; J3411; J3475; J3480; J3490; J7030; J7040; J7050; J7060